=== PATIENT | female | born 1980 | race Two or more races ===

== ENCOUNTER 2025-04-19 14:09 | Inpatient (IN) | payer MEDICAID, SELFPAY ==
--- OUTSIDE RECORDS SUMMARY | 2023-08-30 10:00 | XMS_ITS | Continuity of Care Document ---
Author Organization [facility] Address [address] [place] [phone] Phone Care Team Providers Care Extracting Machine Operator Name Role Phone Carlos Ward MD Unavailable Unavailable Allergies, Adverse Reactions, Alerts Substance Reaction Status Criticality No Known Allergies Active No Inform ation Procedures Procedure Date Comprehensive EP (Complete) Refraction No Charge Comprehensive DIRECTOR OF MANAGED CARE Advance Directives Directive Yes / No Effective Date File Name No Information Encounters Encounter Description Practice Location Reason(s) For Visit Diagnoses Date Provider Providers Copied on Encounter [facility] , [address] [place] [address], [id number], [place] tel:[phone] [place] Dry Eyes OU (chief complaint) Meibomian gland dysfunction (MGD) of upper and lower eyelid of left eyeMeibomian gland dysfunction (MGD) of upper and lower eyelid of right eyeAllergic conjunctiviti s, bilateral Aug- 4 Sylvia Gonzalez. [address] [address], [place], [address], [place]. tel:[phone] [facility] , [address] [place] [address], [id number], [place] tel:[phone] [place] 122 dry eyes (chief complaint) Dry eyes, bilateral Jun- 3 Escobar Davis. [address] [place], [place], [id number] , [place]. tel:[phone] Referring Provider: Ryan Parmar, [address] [place], [address] . tel:[phone] Family History Family Member Type Diagnosis Age At Onset Father Problem Diabetes mellitus Mother Problem Diabetes mellitus Payers Payer name Insurance type Covered libertarian ID Roosevelt serrano(angelic) Affinity by [facility] [id number] Social History Type Description Quantity Date Captured Comments Alcohol Use Details No Caffeine Use Details No Tobacco Use Status Current non-smoker Smoking Status Never smoker Non-Smoking Tobacco Use Details : No Details Available : No Details Available Sex Female Chief Complaint And Reason For Visit From encounter dated '08/30/2023 15:00'. Dry Eyes OU (chief complaint). Description: The 42 year old patient presents for evaluation of Dry Eyes OU. PT is present and is stating that she saw Dr. Cody last year and since that last visit, she has noticed a lot more dryness present in her eyes OU. PT stated not using any gtts due to fear ofrecalls. PT mentioned that her eyes are itchy as well as dry and tearing, especially during the spring season. Reason For Referral Reason For Referral No Information History Of Present Illness Encounter Date Complaint History Of Prese nt Illness Dry Eyes OU The 42 year old patient presents for evaluation of Dry Eyes OU. PT is present and is stating that she saw Dr. Cody last year and since that last visit, she has noticed a lot more dryness present in her eyes OU. PT stated not using any gtts due to fear of recalls. PT mentioned that her eyes are itchy as well as dry and tearing, especially during the spring season. dry eyes The 41 year old female presents for evaluation of dry eyes. Patient states VA stable. States occasional dryness, tearing and watering. C/o light sensitivity and glare while driving at night. Denies all other symptoms at this time. Functional Status Date Functional Assessmen t No Information Instructions Date Instruction Additional Infor nader Return in 1 year for [address] with Dr. Ward. Related to Meibomian gland dysfunction (MGD) of upper and lower eyelid of left eye Impression/Plan Related to Meibo loree gland dysfunction (MGD) of upper and lower eyelid of left eye Return in 1 year nely h Ryan Cody MD for Complete Exam. Related to Dry eyes, bilateral Impression/Plan Related to Dry e yes, bilateral Assessments Type Assessment Date assessment Meibomian gland dysf unction (MGD) of upper and lower eyelid of left eye assessment Meibomian gland dysf unction (MGD) of upper and lower eyelid of right eye assessment Allergic conjunctivitis, bilater al impression MGD OU + Allergies OU 4 Patient Care Teams Name Effective Dates (start - stop) Status Members No Information
--- OUTSIDE RECORDS SUMMARY | 2023-08-30 10:00 | XMS_ITS | Continuity of Care Document ---
Author Organization [facility] Address [address] [place] [phone] Phone Care Team Providers Care Office Professionals Name Role Phone Carlos Ward MD Unavailable Unavailable Allergies, Adverse Reactions, Alerts Substance Reaction Status Criticality No Known Allergies Active No Inform ation Procedures Procedure Date Comprehensive EP (Complete) Refraction No Charge Comprehensive BLOOD BANK CALENDAR CONTROL CLERK Advance Directives Directive Yes / No Effective Date File Name No Information Encounters Encounter Description Practice Location Reason(s) For Visit Diagnoses Date Provider Providers Copied on Encounter [facility] , [address] [place] [address], [id number], [place] tel:[phone] [place] Dry Eyes OU (chief complaint) Meibomian gland dysfunction (MGD) of upper and lower eyelid of left eyeMeibomian gland dysfunction (MGD) of upper and lower eyelid of right eyeAllergic conjunctiviti s, bilateral Aug- 4 Sylvia Gonzalez. [address] [address], [place], [address], [place]. tel:[phone] [facility] , [address] [place] [address], [id number], [place] tel:[phone] [place] 122 dry eyes (chief complaint) Dry eyes, bilateral Jun- 3 Ecsobar Davis. [address] [place], [place], [id number] , [place]. tel:[phone] Referring Provider: Ryan Parmar, [address] [place], [address] . tel:[phone] Family History Family Member Type Diagnosis Age At Onset Father Problem Diabetes mellitus Mother Problem Diabetes mellitus Payers Payer name Insurance type Covered libertarian ID Roosevelt serrano(angelic) Affinity by [facility] [id number] Social History Type Description Quantity Date Captured [...]
--- OUTSIDE RECORDS SUMMARY | 2023-08-30 10:00 | XMS_ITS | Continuity of Care Document ---
Author Organization [facility] Address [address] [place] [phone] Phone Care Team Providers Care Medicaid Biller Name Role Phone Carlos Ward MD Unavailable Unavailable Allergies, Adverse Reactions, Alerts Substance Reaction Status Criticality No Known Allergies Active No Inform ation Procedures Procedure Date Comprehensive EP (Complete) Refraction No Charge Comprehensive FORESTRY TREE PRUNER Advance Directives Directive Yes / No Effective Date File Name No Information Encounters Encounter Description Practice Location Reason(s) For Visit Diagnoses Date Provider Providers Copied on Encounter [facility] , [address] [place] [address], [id number], [place] tel:[phone] [place] Dry Eyes OU (chief complaint) Meibomian gland dysfunction (MGD) of upper and lower eyelid of left eyeMeibomian gland dysfunction (MGD) of upper and lower eyelid of right eyeAllergic conjunctiviti s, bilateral Aug- 4 Sylvia Gonzalez. [address] [address], [place], [address], [place]. tel:[phone] [facility] , [address] [place] [address], [id number], [place] tel:[phone] [place] 122 dry eyes (chief complaint) Dry eyes, bilateral Jun- 3 Escobar Davis. [address] [place], [place], [id number] , [place]. tel:[phone] Referring Provider: Ryan Parmar, [address] [place], [address] . tel:[phone] Family History Family Member Type Diagnosis Age At Onset Father Problem Diabetes mellitus Mother Problem Diabetes mellitus Payers Payer name Insurance type Covered libertarian ID Roosevelt serrano(angelic) Affinity by [facility] [id number] Social History Type Description Quantity Date Captured [...]
--- OUTSIDE RECORDS SUMMARY | 2023-08-30 10:00 | XMS_ITS | Continuity of Care Document ---
Author Organization [facility] Address [address] [place] [phone] Phone Care Team Providers Care Branch Assistant Name Role Phone Carlos Ward MD Unavailable Unavailable Allergies, Adverse Reactions, Alerts Substance Reaction Status Criticality No Known Allergies Active No Inform ation Procedures Procedure Date Comprehensive EP (Complete) Refraction No Charge Comprehensive SENSOR TECHNICIAN Advance Directives Directive Yes / No Effective Date File Name No Information Encounters Encounter Description Practice Location Reason(s) For Visit Diagnoses Date Provider Providers Copied on Encounter [facility] , [address] [place] [address], [id number], [place] tel:[phone] [place] Dry Eyes OU (chief complaint) Meibomian gland dysfunction (MGD) of upper and lower eyelid of left eyeMeibomian gland dysfunction (MGD) of upper and lower eyelid of right eyeAllergic conjunctiviti s, bilateral Aug- 4 Sylvia Gonzalez. [address] [address], [place], [address], [place]. tel:[phone] [facility] , [address] [place] [address], [id number], [place] tel:[phone] [place] 122 dry eyes (chief complaint) Dry eyes, bilateral Jun- 3 Escobar Davis. [address] [place], [place], [id number] , [place]. tel:[phone] Referring Provider: Ryan Parmar, [address] [place], [address] . tel:[phone] Family History Family Member Type Diagnosis Age At Onset Father Problem Diabetes mellitus Mother Problem Diabetes mellitus Payers Payer name Insurance type Covered constitution party ID Roosevelt serrano(angelic) Affinity by [facility] [id number] Social History Type Description Quantity Date Captured [...]
[2025-04-19] VITALS (7 sets, daily range): BP systolic 108–121; BP diastolic 68–80; PULSE 95–118; RESP 18–25; TEMP 36.6–37.5; O2SAT 91–95; BMI 612.4; BMI 25.6
--- NOTE | 2025-04-19 | ECG_ITS ---
Test Reason : QTC CHECK Blood Pressure : */* mmHG Vent. Rate : 124 BPM Atrial Rate : 124 BPM P-R Int : 134 ms QRS Dur : 74 ms QT Int : 322 ms P-R-T Axes : 47 -16 -19 degrees QTcB Int : 462 ms Sinus tachycardia Nonspecific T wave abnormality Abnormal ECG No previous ECGs available Referred By: Sagrario Oliva Electronically Signed By: OSORIO REYNOSO
--- NOTE | ~2025-04-19 | CT_ITS ---
EXAMINATION: CT CHEST WITHOUT CONTRAST CLINICAL INFORMATION: Reason for Exam-persistent hypoxia, wheezing COMPARISON: Chest radiograph on April 19, 2025. TECHNIQUE: Multidetector volumetric CT imaging of the chest was done. Axial MIP volume rendering provided. Sagittal and coronal reformatted images were obtained. This CT examination was performed using dose optimization techniques as appropriate, variously including the following: *Automated exposure control *Adjustment of mA and/or kV according to patient size (this includes techniques or standardized protocols for targeted exams where dose is matched to indication/reason for exam; i.e. 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 LUNGS: Small amount of bubbly soft tissue density in the lower trachea (4:8/53) likely represents mucous/secretions. Minimal bilateral and diffuse bronchial wall thickening. Mucus plugging noted within bronchial branches in the right upper lobe. Collapse of the right middle lobe. Atelectasis/scarring in the lingular region. Small focal area of probable atelectasis in the right upper lobe abutting area of focal pleural thickening of the right major fissure (4:24/53, 13:114/139), PLEURA: No pleural effusion or pneumothorax. Focal area of pleural thickening of the right major fissure as described above. MEDIASTINUM: No thyroid nodules. Heart is normal in size. No pericardial effusion. No coronary artery calcifications. LYMPH NODES: No lymphadenopathy. UPPER ABDOMEN: Numerous hypodense hepatic lesions, incompletely characterized, measuring up to 1.0 cm. OSSEOUS STRUCTURES: No acute or suspicious findings. CT/CT chest wo IV con IMPRESSION: 1. Right middle lobe collapse. 2. Probable mucous/secretions within the lower trachea. 3. Findings suggestive of mild diffuse bronchitis. Mucus plugging in some of the branches of the right upper lobe. 4. Numerous hypodense hepatic lesions, incompletely characterized. If this is a unknown finding, consider ultrasound for further evaluation. Electronically signed by: Keith Brian MD 04/22/2025 03:54 PM EST
--- NOTE | ~2025-04-19 | US_ITS ---
CLINICAL HISTORY: hepatic lesions identified US abdomen limited Comparison: None provided Findings: Multiple small hepatic cysts noted. No other significant hepatic abnormality. Right lobe 13 cm length. Main portal vein patent with antegrade flow. Visualized pancreas unremarkable. Gallbladder unremarkable without stones. Common duct 3.2 mm. No wall thickening. Impression: Multiple hepatic cysts Otherwise unremarkable This document has been electronically signed by: Raleigh Yao MD on 04/23/2025 00:16:21
--- NOTE | ~2025-04-19 | XR_ITS ---
CLINICAL HISTORY: wheezing 2 view chest x-ray. Comparison: None Findings: In the lateral view there is thickening of the major fissure and partial atelectasis of the right middle lobe. Perihilar interstitial opacities are present. Heart size normal No acute fracture. Impression: Perihilar interstitial opacity consistent with atypical pulmonary infection such as virus or mycoplasma. Right middle lobe consolidation and thickening of the major fissure in the lateral projection. This document has been electronically signed by: Hardeep Chapman MD on 04/19/2025 15:01:23
--- NOTE | 2025-04-19 14:11 | ED.GENADULT ---
HPI - General Adult General Chief complaint: Asthma Stated complaint: asthma Time Seen by Provider: 04/19/25 16:13 Source: patient Mode of arrival: ambulatory Limitations: no limitations History of Present Illness ED Provider: Dr. Obregon HPI narrative: 44-year-old female presented hospital today for chest discomfort and worsening shortness of breath and wheezing. Patient has a history of asthma in the past. . This has been going on since Sunday. Patient presents to the ER for evaluation due to his shortness of breath. Related Data Allergies Allergy/AdvReac Type Severity Reaction Status Date / Time No Known Allergies Allergy Verified 04/19/25 14:15 Review of Systems Review of Systems: Pertinent review of systems as mentioned in HPI. All other system otherwise negative. [facility] Past Medical History [facility] Narrative: Asthma Medical History (Updated 04/19/25 @ 22:20 by Mariel Obregon DO) Moderate persistent asthma Social History Social History Smoked in Last 30 Days: No Use of substances other than those prescribed or required for medical reasons: No Advance Directives: No Advance Directives Information Provided: No Do you have a plan to hurt others: No Plan Patient : No Physical Exam ED Exam Exam: General: appears uncomfortable Head: Normacephalic, atraumatic ENT: oral mucosa moist, neck supple, no tracheal deviation Cardiovascular: tachycardic rate, regular rhythm, no murmurs, rubbing, gallops Respiratory: diminished lung sounds bilateral wheezing Gastrointestinal: Soft, non distended, non tender, non guarding Neurological: Awake and alert, no facial droop noted Skin: Warm and dry Psychiatric: Appropriate mood and thoughts Vital Signs: Vital Signs - 24 hr 04/19/25 14:12 04/19/25 14:58 04/19/25 15:26 Temperature 97.9 F 98.2 F Pulse Rate 98 95 110 H Respiratory Rate 18 18 25 H Blood Pressure 114/68 117/71 Pulse Oximetry 93 95 Oxygen Delivery Method Room Air Room Air 04/19/25 17:14 04/19/25 17:26 04/19/25 19:47 Temperature 98.6 F 99.5 F Pulse Rate 102 H 99 118 H Respiratory Rate 20 18 18 Blood Pressure 121/80 108/71 Pulse Oximetry 95 91 L Oxygen Delivery Method Room Air Room Air 04/19/25 20:17 Temperature Pulse Rate 100 Respiratory Rate 18 Blood Pressure Pulse Oximetry Oxygen Delivery Method BMI result Body Mass Index 612.4 Course Course Course Narrative: This is a Rapid Medical Examination (RME) performed by Izable Meade PA-C in triage. Full HPI, ROS, assessment and treatment plan per primary provider in the Main ED. Hx: 44 yo F here for eval of wheezing and chest pain w/ breathing x6 days. unresponsive to home tx. Plan: ed bronch protocol, labs/cxr/viral swabs Medications Administered Generic Name Dose Route Start Last Admin Trade Name Freq PRN Reason Stop Dose Admin Enoxaparin Sodium 40 mg 04/19/25 21:00 04/19/25 21:06 Enoxaparin Sodium 40 Mg/0.4 Ml Syringe SUBCUT 40 mg Q24H JOHNATHAN Administration Discontinued Medications Generic Name Dose Route Start Last Admin Trade Name Freq PRN Reason Stop Dose Admin Acetaminophen 975 mg 04/19/25 17:16 04/19/25 17:35 Acetaminophen 325 Mg Tablet PO 04/19/25 17:17 975 mg ONCE ONE Administration Albuterol/Ipratropium 3 ml 04/19/25 17:15 04/19/25 17:25 Albuterol/Iprat 2.5/0.5mg 3 Ml Ampul.Neb INHALE 04/19/25 17:16 3 ml ONCE ONE Administration Albuterol/Ipratropium 3 ml 04/19/25 17:16 04/19/25 17:37 Albuterol/Iprat 2.5/0.5mg 3 Ml Ampul.Neb INHALE 04/19/25 17:17 3 ml ONCE ONE Administration Albuterol/Ipratropium 3 ml 04/19/25 19:53 04/19/25 20:17 Albuterol/Iprat 2.5/0.5mg 3 Ml Ampul.Neb INHALE 04/19/25 19:54 3 ml ONCE ONE Administration Azithromycin 500 mg 04/19/25 20:28 04/19/25 21:04 Azithromycin 500 Mg Tablet PO 04/19/25 20:29 500 mg ONCE ONE Administration Albuterol Sulfate 2.5 mg/ 0 mg 04/19/25 14:57 04/19/25 15:00 Albuterol/Ipratropium 3 ml INHALE 04/19/25 14:58 5 dose ONCE ONE Administration Guaifenesin/Codeine Phosphate 5 ml 04/19/25 17:17 04/19/25 17:37 Guaifen/Codeine Sf 200/20/10ml 10 Ml Liquid PO 04/19/25 17:18 5 ml ONCE ONE Administration Sodium Chloride 1,000 mls @ 999 mls/hr 04/19/25 17:30 04/19/25 19:09 Ns IV 04/19/25 18:30 Infused .Q1H1M JOHNATHAN Infusion Magnesium Sulfate 2 gm in 50 mls @ 50 mls/hr 04/19/25 17:16 04/19/25 18:41 Magnesium Sulfate/H2o IV 04/19/25 18:15 Infused ONCE ONE Infusion Lactated Ringer's 1,000 mls @ 999 mls/hr 04/19/25 20:00 04/19/25 21:03 Lr IV 04/19/25 21:00 0 mls/hr .Q1H1M JOHNATHAN Infusion Ceftriaxone Sodium 2 gm/ 50 mls @ 100 mls/hr 04/19/25 20:27 04/19/25 21:03 Sodium Chloride IV 04/19/25 20:56 100 mls/hr ONCE ONE Administration Ketorolac Tromethamine 15 mg 04/19/25 19:55 04/19/25 20:05 Ketorolac Tromethamine 15 Mg/Ml Vial IVPUSH 04/19/25 19:56 15 mg ONCE ONE Administration Prednisone 60 mg 04/19/25 17:16 04/19/25 17:35 Prednisone 20 Mg Tablet PO 04/19/25 17:17 60 mg ONCE ONE Administration Medical Decision Making Medical Decision Making [facility] Narrative: This is a 44-year-old female presented hospital today for evaluation of shortness of breath and wheezing. I suspect patient has asthma exacerbation. Viral swab was positive for RSV. Chest x-ray showed possible pneumonia. We will plan to cover patient with IV ceftriaxone and azithromycin for community-acquired pneumonia coverage. Multiple DuoNeb treatment was given to the patient. P.o. prednisone was given to the patient as well. However the patient does have signs of hypoxia O2 saturation dropped to 88%. Patient does sounds diminished bilaterally. Given patient's presentation at this time we will plan to admit patient to the hospital. IV fluid was given for the patient's tachycardia. I suspect her tachycardia is secondary to breathing treatments multiple time. No sign of leukocytosis however the patient does have signs of elevated lactic acid. I think this is likely secondary to patient receiving multiple breathing treatments during her stay here. We will plan to admit the patient to the hospital at this time. Differential Diagnosis Differential Diagnoses: The differential diagnosis associated with the presentation includes Pneumonia, RSV, sepsis, respiratory failure Consult Healthcare Provider Management of the patient was discussed with: Hospitalist Lab Data MDM Lab Attestation statement: I reviewed the patient's lab results. 04/19/25 14:46 04/19/25 14:46 Labs: Lab Results 04/19/25 04/19/25 Range/Units 14:45 14:46 WBC 5.8 (4.8-10.8) X10*3/uL RBC 4.69 (4.20-5.50) X10*6/uL Hgb 12.9 (12.0-16.0) g/dl Hct 40.1 (37.0-47.0) % MCV 85.5 (80.0-98.0) fL MCH 27.5 (27.0-33.0) pg MCHC 32.2 (31.0-35.0) g/dl RDW 13.7 (11.0-16.0) % Plt Count 199 (160-400) X10*3/uL MPV 10.8 (9.4-12.3) fL Immature Gran % (Auto) 0.2 (0.0-0.4) % Neut % (Auto) 56.9 (45-73) % Lymph % (Auto) 27.6 (20-40) % Door % (Auto) 9.3 (2-11) % Eos % (Auto) 5.3 H (0-4) % Baso % (Auto) 0.7 (0-2) % Lymph # (Auto) 1.6 (1.2-4.9) X10*3/uL Door # (Auto) 0.5 (0.1-1.2) X10*3/uL Eos # (Auto) 0.3 (0.0-0.4) X10*3/uL Baso # (Auto) 0.0 (0.0-0.2) X10*3/uL Abs Immat Gran (auto) 0.01 (0.00-0.03) X10*3/uL Absolute Neuts (auto) 3.3 (2.0-8.3) x10*3/uL Absolute Nucleated RBC 0.000 (0.0-0.012) X10*3/uL Nucleated RBC % (auto) 0.0 (0.0-0.2) /100WBC Sodium 139 (135-145) mmol/L Potassium 4.3 (3.3-5.1) mmol/L Chloride 106 (96-108) mmol/L Carbon Dioxide 26 (22-29) mmol/L Anion Gap 11 L (12-20) BUN 11 (9-16) mg/dL Creatinine 0.91 (0.5-1.4) mg/dL Estim Creat Clear Calc -20.3 Estimated GFR > 60 Random Glucose 101 (60-115) mg/dL Calcium 9.3 (8.4-10.2) mg/dL Magnesium 2.0 (1.6-2.6) mg/dL Total Bilirubin 0.2 (0.0-1.0) mg/dL AST 20 (5-31) U/L ALT 17 (0-31) U/L Alkaline Phosphatase 58 (39-117) U/L Total Protein 7.3 (6.5-8.0) g/dL Albumin 4.1 (3.5-5.0) g/dL Influenza Type A (PCR) NEGATIVE (Negative) Influenza Type B (PCR) NEGATIVE (Negative) RSV RNA Qual (PCR) POSITIVE A (Negative) SARS-CoV-2 RNA (RT-PCR) NEGATIVE (Negative) Independent Interpretation I performed an independent interpretation of an: Plain X-Ray Radiology Impression Discussion of test interpretation with radiology: I have reviewed the radiologist's reading. Critical Care Time Critical Care Time Critical Care Time: Yes Total Critical Care Time: 40 Attestation: Time is exclusive of separately billable procedures. Time includes: direct patient care, patient reassessment, coordination of patient care, interpretation of data (laboratory data, pulse oximetry, arterial blood gases and chest xrays), review of patient's medical records, medical consultation and documentation of patient care. Procedures excluded from critical care time: central intravenous line placement and electrocardiography. Discharge Plan Discharge Clinical Impression: Acute respiratory failure with hypoxia, RSV (acute bronchiolitis due to respiratory syncytial virus), Acute asthma exacerbation, Acute lactic acidosis Patient Disposition: Admitted As Inpatient
[2025-04-19 14:53] LABS: MANUAL DIFF FLAG NO
[2025-04-19 14:57] LABS: Hematocrit 40.1 % (37.0-47.0); Hemoglobin 12.9 g/dl (12.0-16.0); Imm Gran Abs Auto 0.01 X10*3/uL (0.00-0.03); Imm Gran Pct Auto 0.2 % (0.0-0.4); Lymphocytes Absolute Auto 1.6 X10*3/uL (1.2-4.9); Mean Corpuscular HGB Conc 32.2 g/dl (31.0-35.0); Mean Corpuscular Hemoglobin 27.5 pg (27.0-33.0); Mean Corpuscular Volume 85.5 fL (80.0-98.0); NRBC Abs Auto 0.000 X10*3/uL (0.0-0.012); NRBC Pct Auto 0.0 /100WBC (0.0-0.2); Platelet Count 199 X10*3/uL (160-400); Red Blood Count 4.69 X10*6/uL (4.20-5.50); White Blood Count 5.8 X10*3/uL (4.8-10.8)
[2025-04-19] MEDS: Albuterol Sulfate 2.5 MG, Albuterol/Iprat 2.5/0.5MG 3 ML 3 ML INHALE (15:00)
[2025-04-19 15:13] LABS: Alanine Aminotransferase 17 U/L (0-31); Albumin Level 4.1 g/dL (3.5-5.0); Alkaline Phosphatase 58 U/L (39-117); Anion Gap 11 (12-20); Aspartate Amino Transferase 20 U/L (5-31); Blood Urea Nitrogen 11 mg/dL (9-16); Calcium 9.3 mg/dL (8.4-10.2); Carbon Dioxide 26 mmol/L (22-29); Chloride 106 mmol/L (96-108); Creatinine Clr Calc Pharmacy -20.3; Estimated Glomerular Filt Rate > 60; Magnesium 2.0 mg/dL (1.6-2.6); Potassium 4.3 mmol/L (3.3-5.1); Sodium 139 mmol/L (135-145); Total Protein 7.3 g/dL (6.5-8.0)
[2025-04-19 15:29] LABS: Resp Syncy Virus RNA Qual PCR POSITIVE (Negative); SARS COV2 PCR INHOUSE NEGATIVE (Negative)
[2025-04-19] MEDS: Albuterol/Iprat 2.5/0.5MG 3 ML AMPUL.NEB INHALE ×3 (17:25→20:17)
[2025-04-19] MEDS: Magnesium Sulfate/H2O 2 GM/50 ML PIGGYBACK IV (17:34)
[2025-04-19] MEDS: guaiFEN/Codeine SF 200/20/10ML 10 ML LIQUID 5 ML PO (17:37)
--- NOTE | 2025-04-19 18:07 | PC.NURSE ---
alert and oriented, coughing with labored breathing intermittently. RSV + Chest pain with coughing and breathing. General malaise
[2025-04-19] MEDS: Lactated Ringers 1,000 ML 999 ML IV ×2 (20:07→22:29)
--- NOTE | 2025-04-19 20:10 | PC.NURSE ---
Pt spO2 dropped to 88% on room air during ambulation. Provider notified.
[2025-04-19 20:54] LABS: Venous Blood Gas Refer to POC result
[2025-04-19 20:54] LABS: VBG HCO3 20 mmol/L (22-26); VBG O2 % Saturation 86.0 %
--- NOTE | 2025-04-19 21:10 | PC.NURSE ---
Delay in ABX administration due to need to obtain blood cultures first. Pt requesting a break in between obtaining each set of blood cultures.
--- NOTE | 2025-04-19 21:28 | P.HPHOSP_ITS ---
History of Present Illness Date of Service: 04/19/25 Attending physician on admission: Armando Whitley Chief Complaint: SOB, wheeze Patient is a 44 old female with a history significant for moderate persistent asthma (only on albuterol) and history of ICU admission with intubation in 2009 for asthma exacerbation, who presented to the ED due to cough, shortness of breath, wheezing and chest discomfort for the past 5 days. The patient reports that she saw her primary care and was started on a nebulizer without any improvement. She reports that at baseline she uses albuterol 2 to 3 times a day but has been using it up to 5 times a day due to her illness. She also has a mild headache and states that she has not been able to eat much for the past 3 days due to her cough and concern for post tussive emesis. No abdominal pain or urinary symptoms. Review of Systems 2 Constitutional: Constitutional: Denies body ache(s), Denies chills, Denies fatigue, Denies fever(s) and Reports headache(s) Eyes: Eyes: Denies change in vision ENT: Reports headache(s), Denies nasal congestion and Denies sore throat Cardiovascular: Cardiovascular: Reports chest pain, Denies rapid heart rate, Denies lightheadedness and Reports dyspnea Respiratory: Respiratory: Reports as per HPI, Reports chest congestion, Reports cough, Reports dyspnea and Reports wheezing Gastrointestinal: Gastrointestinal: Denies abdominal pain, Denies diarrhea, Denies nausea and Denies vomiting Genitourinary: Genitourinary: Denies dysuria and Denies urinary urgency Musculoskeletal: Musculoskeletal: Denies myalgias Integumentary/Breasts: Skin/Breast: Denies rash Neurologic: Denies confusion and Reports headache(s) Psychiatric: Psychiatric: Denies confusion Endocrine: Endocrine: Denies fatigue Hematologic/Lymphatic: Hematologic/Lymphatic: Denies easy bleeding Allergic/Immunologic: Allergic/Immunologic: Reports wheezing [facility] Medical History (Updated 04/19/25 @ 22:09 by Sagrario Oliva PA-C) Moderate persistent asthma Functional capacity: independent ambulation Social History Smoked in Last 30 Days: No Use of substances other than those prescribed or required for medical reasons: No Advance Directives: No Advance Directives Information Provided: No Do you have a plan to hurt others: No Plan Patient : No Narrative: No smoking, alcohol or drug use Meds Allergies Allergy/AdvReac Type Severity Reaction Status Date / Time No Known Allergies Allergy Verified 04/19/25 14:15 Active Medications: Current Medications Acetaminophen (Acetaminophen 325 Mg Tablet) 975 mg PO Q6H PRN PRN Reason: Pain, Mild 1-3,fever,headache Albuterol/Ipratropium (Albuterol/Iprat 2.5/0.5mg 3 Ml Ampul.Neb) 3 ml INHALE RQ4H WHILE AWAKE [facility] Calcium Carbonate (Calcium Carbonate 750 Mg Tab.Chew) 750 mg PO Q4H PRN PRN Reason: Heartburn Enoxaparin Sodium (Enoxaparin Sodium 40 Mg/0.4 Ml Syringe) 40 mg SUBCUT Q24H JOHNATHAN Last Admin: 04/19/25 21:06 Dose: 40 mg Guaifenesin/Dextromethorphan (Guaifenesin Dm 100/10/5 Ml 5 Ml Syrup) 5 ml PO Q6H PRN PRN Reason: Cough Ceftriaxone Sodium 1 gm/ (Sodium Chloride) 50 mls @ 100 mls/hr IV Q24H JOHNATHAN Doxycycline Hyclate 100 mg/ (Sodium Chloride) 250 mls @ 166.67 mls/hr IV BID [facility] Magnesium Hydroxide (Milk Of Magnesia 30 Ml Oral.Susp) 30 ml PO DAILY PRN PRN Reason: Constipation Melatonin (Melatonin 3 Mg Tablet) 6 mg PO BEDTIME PRN PRN Reason: Insomnia Ondansetron HCl (Ondansetron Hcl 4 Mg/2 Ml Vial) 4 mg IVPUSH Q8H PRN PRN Reason: Nausea and Vomiting Oxycodone HCl (Oxycodone Hcl Immed Release 5 Mg Tablet) 5 mg PO Q6H PRN PRN Reason: Pain, Severe (Pain Scale 7-10) Prednisone (Prednisone 20 Mg Tablet) 60 mg PO DAILY [facility]; Taper Stop: 05/04/25 08:59 Sodium Chloride (0.9 % Sodium Chloride Flush 3 Ml Syringe) 3 ml IVFLUSH QSHIFT [facility] Tramadol HCl (Tramadol Hcl 50 Mg Tablet) 50 mg PO Q6H PRN PRN Reason: Pain, Moderate(Pain Scale 4-6) Physical Exam 2 Vital Signs and Narrative: Vital Signs: Last Vital Signs Temp 99.5 F 04/19/25 19:47 Pulse 100 04/19/25 20:17 Resp 18 04/19/25 20:17 BP 108/71 04/19/25 19:47 Pulse Ox 91 L 04/19/25 19:47 O2 Del Method Room Air 04/19/25 19:47 BMI result Body Mass Index 25.6 General: AOx3, no acute distress Resp: expiratory wheezing, no respiratory distress CVS: S1, S2, tachy regular rhythm GI: +BS, NT, no distention Skin: Warm, dry Neuro: Cranial nerves II-XII grossly intact bilaterally. Motor grossly intact bilaterally Extremities: No pitting edema Psych: Appropriate affect Const: General: No confusion Orientation/consciousness: No confusion Neuro: General: No confusion Results Labs 04/19/25 14:46 04/19/25 14:46 Labs: Laboratory Results - last 24 hr 04/19/25 04/19/25 04/19/25 14:45 14:46 20:45 MCV 85.5 MCH 27.5 MCHC 32.2 RDW 13.7 Plt Count 199 MPV 10.8 Immature Gran % (Auto) 0.2 Neut % (Auto) 56.9 Lymph % (Auto) 27.6 [place] % (Auto) 9.3 Eos % (Auto) 5.3 H Baso % (Auto) 0.7 Lymph # (Auto) 1.6 [place] # (Auto) 0.5 Eos # (Auto) 0.3 Baso # (Auto) 0.0 Abs Immat Gran (auto) 0.01 Absolute Neuts (auto) 3.3 Absolute Nucleated RBC 0.000 Nucleated RBC % (auto) 0.0 VBG pH VBG pCO2 VBG pO2 VBG HCO3 VBG O2 Saturation VBG Base Excess Anion Gap 11 L Estim Creat Clear Calc -20.3 Estimated GFR > 60 Random Glucose 101 Lactic Acid 3.5 H* Calcium 9.3 Magnesium 2.0 Total Bilirubin 0.2 AST 20 ALT 17 Alkaline Phosphatase 58 Total Protein 7.3 Albumin 4.1 Influenza Type A (PCR) NEGATIVE Influenza Type B (PCR) NEGATIVE RSV RNA Qual (PCR) POSITIVE A SARS-CoV-2 RNA (RT-PCR) NEGATIVE 04/19/25 20:50 MCV MCH MCHC RDW Plt Count MPV Immature Gran % (Auto) Neut % (Auto) Lymph % (Auto) [place] % (Auto) Eos % (Auto) Baso % (Auto) Lymph # (Auto) [place] # (Auto) Eos # (Auto) Baso # (Auto) Abs Immat Gran (auto) Absolute Neuts (auto) Absolute Nucleated RBC Nucleated RBC % (auto) VBG pH 7.39 VBG pCO2 33 VBG pO2 58 VBG HCO3 20 L VBG O2 Saturation 86.0 VBG Base Excess -3.4 Anion Gap Estim Creat Clear Calc Estimated GFR Random Glucose Lactic Acid Calcium Magnesium Total Bilirubin AST ALT Alkaline Phosphatase Total Protein Albumin Influenza Type A (PCR) Influenza Type B (PCR) RSV RNA Qual (PCR) SARS-CoV-2 RNA (RT-PCR) Assessment and Plan (1) Acute respiratory failure with hypoxia: Status: Acute (2) Acute asthma exacerbation: Qualifiers: Asthma severity: moderate Asthma persistence: persistent Qualified Code(s): J45.41 - Moderate persistent asthma with (acute) exacerbation Status: Acute (3) RSV (acute bronchiolitis due to respiratory syncytial virus): Status: Acute (4) Viral pneumonia: Status: Acute (5) Acute lactic acidosis: Status: Acute Plan Patient is a 44 old female with a history significant for moderate persistent asthma (only on albuterol) and history of ICU admission with intubation in 2009 for asthma exacerbation, who presented to the ED due to cough, shortness of breath, wheezing and chest discomfort for the past 5 days. Acute hypoxic respiratory failure with acute asthma exacerbation secondary to RSV with superimposed viral pneumonia - hypoxic with ambulation, titrate O2 PRN - poorly controlled asthma at baseline - prednisone taper starting at 60mg - duonebs Q4H while awake - azithromycin for viral pneumonia - supportive care for RSV, Robitussin, Tylenol - monitor CBC and BMP Acute lactic acidosis and tachycardia secondary to albuterol use - trend lactic acid full code VTE prophy: lovenox Patient has acute hypoxic respiratory failure secondary to asthma exacerbation with RSV and superimposed pneumonia, requiring admission for at least 2 midnight stay for IV antibiotics, breathing treatments and monitoring. Quality Stroke Does the patient have a stroke diagnosis?: No VTE Prior VTE?: No VTE Risk Level:: Medical - moderate - high VTE Device Contraindication: Treatment Not Indicated VTE Drug Contraindication: N/A - Med Ordered
[2025-04-19 22:49] LABS: Reflex Lactate? Lactic Acid Added
[2025-04-19 23:33] LABS: ~Lactic Acid-LAB USE ONLY 6.5 mmol/L (0.5-2.0)
[2025-04-20] VITALS (9 sets, daily range): BP systolic 99–121; BP diastolic 51–68; PULSE 88–136; RESP 14–34; TEMP 36.4–37.1; O2SAT 90–100
--- NOTE | 2025-04-20 | ECG_ITS ---
Test Reason : pain Blood Pressure : */* mmHG Vent. Rate : 113 BPM Atrial Rate : 113 BPM P-R Int : 136 ms QRS Dur : 76 ms QT Int : 324 ms P-R-T Axes : 51 -1 -22 degrees QTcB Int : 444 ms Sinus tachycardia Nonspecific T wave abnormality Abnormal ECG When compared with ECG of 19-Apr-2025 21:32, No significant change was found Referred By: Se Sanford Electronically Signed By: OSORIO REYNOSO
--- NOTE | 2025-04-20 00:02 | PM.EVENT ---
Event Note Date of Service: 04/20/25 Event Note: lactic acid elevated at 6.5, due to multiple doses of albuterol in the ED and at home. received 3L IVF in ED. tachycardia also due to albuterol use, improving. Time Spent With Patient Time: Total time managing care of this patient today ____ minutes.
[2025-04-20 01:11] LABS: Reflex Lactate? 2 Y
[2025-04-20] MEDS: 0.9 % Sodium Chloride Flush 3 ML SYRINGE IVFLUSH ×3 (01:48→21:02)
[2025-04-20 02:02] LABS: ~Lactic Acid-LAB USE ONLY 4.3 mmol/L (0.5-2.0)
[2025-04-20 02:33] LABS: Cancel Lactic Acid Canceled
[2025-04-20 04:09] LABS: MANUAL DIFF FLAG NO
[2025-04-20 04:11] LABS: Hematocrit 37.3 % (37.0-47.0); Hemoglobin 11.8 g/dl (12.0-16.0); Imm Gran Abs Auto 0.01 X10*3/uL (0.00-0.03); Imm Gran Pct Auto 0.2 % (0.0-0.4); Lymphocytes Absolute Auto 1.1 X10*3/uL (1.2-4.9); Mean Corpuscular HGB Conc 31.6 g/dl (31.0-35.0); Mean Corpuscular Hemoglobin 27.1 pg (27.0-33.0); Mean Corpuscular Volume 85.7 fL (80.0-98.0); NRBC Abs Auto 0.000 X10*3/uL (0.0-0.012); NRBC Pct Auto 0.0 /100WBC (0.0-0.2); Platelet Count 199 X10*3/uL (160-400); Red Blood Count 4.35 X10*6/uL (4.20-5.50); White Blood Count 4.5 X10*3/uL (4.8-10.8)
[2025-04-20 04:23] LABS: Anion Gap 12 (12-20); Blood Urea Nitrogen 8 mg/dL (9-16); Calcium 8.7 mg/dL (8.4-10.2); Carbon Dioxide 22 mmol/L (22-29); Chloride 110 mmol/L (96-108); Creatinine Clr Calc Pharmacy 89.7; Estimated Glomerular Filt Rate > 60; Potassium 4.0 mmol/L (3.3-5.1); Sodium 140 mmol/L (135-145)
[2025-04-20 05:00] LABS: Folate 8.6 ng/mL (> or = 4.0); Vitamin B12 626 pg/mL (200-900)
--- NOTE | 2025-04-20 07:15 | PC.NURSE ---
assumed care of pt at 0645. pt a&ox4. vss and up to date. 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 slight wheezing noted upon auscultation - pending breathing tx via RT. otherwise no apparent respiratory distress - no sob/wob noted. respirations even/unlabored. prn zofran administered d/t increased nausea as patient states her cough makes her nauseous. pt otherwise pending bed assignment at this time. plan of care ongoing. call burton placed within reach.
[2025-04-20] MEDS: Albuterol/Iprat 2.5/0.5MG 3 ML AMPUL.NEB INHALE ×2 (07:46→11:08)
--- NOTE | 2025-04-20 08:45 | PC.NURSE ---
pt medicated per provider order. pt reporting prn administration was effective. resting comfortably in no apparent distress. plan of care ongoing. call burton placed within reach.
--- NOTE | 2025-04-20 08:54 | PHA.MEDREC ---
Pharmacy Consult ? Medication Reconciliation Pharmacy has completed the medication reconciliation. Patient know medications. Recently stopped amox 500 qid. Last dose sat 111/15 night
--- NOTE | 2025-04-20 11:06 | P.DS_ITS ---
DS: Providers Provider Date of Service: 04/20/25 Date of admission: 04/19/25 20:32 Date of discharge: 04/20/25 Primary care physician: Juan Baig DS: Diagnosis Discharge Diagnosis (1) Acute respiratory failure with hypoxia: Status: Acute (2) Acute asthma exacerbation: Status: Acute (3) RSV (acute bronchiolitis due to respiratory syncytial virus): Status: Acute (4) Viral pneumonia: Status: Acute (5) Acute lactic acidosis: Status: Acute DS: Summary Hospital Course Hospital Course: Admission HPI Chief Complaint: SOB, wheeze Patient is a 44 old female with a history significant for moderate persistent asthma (only on albuterol) and history of ICU admission with intubation in 2009 for asthma exacerbation, who presented to the ED due to cough, shortness of breath, wheezing and chest discomfort for the past 5 days. The patient reports that she saw her primary care and was started on a nebulizer without any improvement. She reports that at baseline she uses albuterol 2 to 3 times a day but has been using it up to 5 times a day due to her illness. She also has a mild headache and states that she has not been able to eat much for the past 3 days due to her cough and concern for post tussive emesis. No abdominal pain or urinary symptoms. Hospital coruse: Time Attestation Discharge Coordination Time (in mins): 45 Quality: Safe Use of Opioids Does Pt have an Active Cancer Diagnosis on the Problem List?: No Quality: Stroke Does the patient have a stroke diagnosis?: No Physical Exam Vital Signs: Vital Signs: Last Vital Signs Temp 98.2 F 04/20/25 04:35 Pulse 88 04/20/25 07:47 Resp 14 04/20/25 07:47 BP 102/59 L 04/20/25 04:35 Pulse Ox 100 04/20/25 04:35 O2 Del Method Room Air 04/20/25 04:35 BMI result Body Mass Index 25.6 DS: Data Data Completed and Pending Labs on day of discharge: Laboratory Results - last 24 hr 04/19/25 04/19/25 04/19/25 14:45 14:46 20:45 WBC 5.8 RBC 4.69 Hgb 12.9 Hct 40.1 MCV 85.5 MCH 27.5 MCHC 32.2 RDW 13.7 Plt Count 199 MPV 10.8 Immature Gran % (Auto) 0.2 Neut % (Auto) 56.9 Lymph % (Auto) 27.6 [place] % (Auto) 9.3 Eos % (Auto) 5.3 H Baso % (Auto) 0.7 Lymph # (Auto) 1.6 [place] # (Auto) 0.5 Eos # (Auto) 0.3 Baso # (Auto) 0.0 Abs Immat Gran (auto) 0.01 Absolute Neuts (auto) 3.3 Absolute Nucleated RBC 0.000 Nucleated RBC % (auto) 0.0 VBG pH VBG pCO2 VBG pO2 VBG HCO3 VBG O2 Saturation VBG Base Excess Sodium 139 Potassium 4.3 Chloride 106 Carbon Dioxide 26 Anion Gap 11 L BUN 11 Creatinine 0.91 Estim Creat Clear Calc -20.3 Estimated GFR > 60 Random Glucose 101 Lactic Acid 3.5 H* Lactic Acid F/U @ 2Hr Lactic Acid F/U @ 4Hr Calcium 9.3 Magnesium 2.0 Total Bilirubin 0.2 AST 20 ALT 17 Alkaline Phosphatase 58 Total Protein 7.3 Albumin 4.1 Vitamin B12 Folate Influenza Type A (PCR) NEGATIVE Influenza Type B (PCR) NEGATIVE RSV RNA Qual (PCR) POSITIVE A SARS-CoV-2 RNA (RT-PCR) NEGATIVE 04/19/25 04/19/25 04/20/25 20:50 23:09 01:27 WBC RBC Hgb Hct MCV MCH MCHC RDW Plt Count MPV Immature Gran % (Auto) Neut % (Auto) Lymph % (Auto) [place] % (Auto) Eos % (Auto) Baso % (Auto) Lymph # (Auto) [place] # (Auto) Eos # (Auto) Baso # (Auto) Abs Immat Gran (auto) Absolute Neuts (auto) Absolute Nucleated RBC Nucleated RBC % (auto) VBG pH 7.39 VBG pCO2 33 VBG pO2 58 VBG HCO3 20 L VBG O2 Saturation 86.0 VBG Base Excess -3.4 Sodium Potassium Chloride Carbon Dioxide Anion Gap BUN Creatinine Estim Creat Clear Calc Estimated GFR Random Glucose Lactic Acid Lactic Acid F/U @ 2Hr 6.5 H* Lactic Acid F/U @ 4Hr 4.3 H* Calcium Magnesium Total Bilirubin AST ALT Alkaline Phosphatase Total Protein Albumin Vitamin B12 Folate Influenza Type A (PCR) Influenza Type B (PCR) RSV RNA Qual (PCR) SARS-CoV-2 RNA (RT-PCR) 04/20/25 03:53 WBC 4.5 L RBC 4.35 Hgb 11.8 L Hct 37.3 MCV 85.7 MCH 27.1 MCHC 31.6 RDW 13.7 Plt Count 199 MPV 11.3 Immature Gran % (Auto) 0.2 Neut % (Auto) 74.1 H Lymph % (Auto) 23.7 [place] % (Auto) 2.0 Eos % (Auto) 0.0 Baso % (Auto) 0.0 Lymph # (Auto) 1.1 L [place] # (Auto) 0.1 Eos # (Auto) 0.0 Baso # (Auto) 0.0 Abs Immat Gran (auto) 0.01 Absolute Neuts (auto) 3.3 Absolute Nucleated RBC 0.000 Nucleated RBC % (auto) 0.0 VBG pH VBG pCO2 VBG pO2 VBG HCO3 VBG O2 Saturation VBG Base Excess Sodium 140 Potassium 4.0 Chloride 110 H Carbon Dioxide 22 Anion Gap 12 BUN 8 L Creatinine 0.68 Estim Creat Clear Calc 89.7 Estimated GFR > 60 Random Glucose 143 H Lactic Acid Lactic Acid F/U @ 2Hr Lactic Acid F/U @ 4Hr Calcium 8.7 D Magnesium Total Bilirubin AST ALT Alkaline Phosphatase Total Protein Albumin Vitamin B12 626 Folate 8.6 Influenza Type A (PCR) Influenza Type B (PCR) RSV RNA Qual (PCR) SARS-CoV-2 RNA (RT-PCR) Discharge Plan Discharge Patient Disposition: Home, Self-Care Discharge Diagnosis: Acute respriatory failure due RSV causing asthma exacerbation Referrals: Juan Baig [Other] - 1 Week Discharge Medications: No Action budesonide 0.5 mg/2 mL Suspension For Nebulization 0.5 mg INHALATION BID albuterol sulfate [ProAir HFA] 90 mcg/actuation Hfa Aerosol Inhaler 2 puff INHALATION Q4H PRN (Reason: Wheezing) Diet: Advance to usual diet Activity on Discharge: As tolerated Stand Alone Forms: Patient Portal Discharge page Print Language: Israeli Care Plan Goals: recovery from acute respiratory failure due to RSV causing asthma exacerbation Health Concerns: acute respiratory failure due to RSV causing asthma exacerbation Plan of Treatment: Take prednisone as directed, Use inhalers as directed follow up with your Doctor in a week, call for appointmen Assessment: see above
--- NOTE | 2025-04-20 11:23 | P.PNIM_ITS ---
Subjective Subjective Date of Service: 04/20/25 Interval History: f/u acute hypoxic respiratory failure due to moderate persitent asthma with acute exacerbation Still with SOB and persistent wheezing, has tested positive for RSV and has history of inbuation Physical Exam 2 Vital Signs: Vital Signs: Last Vital Signs Temp 98.2 F 04/20/25 04:35 Pulse 109 H 04/20/25 11:12 Resp 25 H 04/20/25 11:12 BP 102/59 L 04/20/25 04:35 Pulse Ox 100 04/20/25 04:35 O2 Del Method Room Air 04/20/25 04:35 BMI result Body Mass Index 25.6 Const: Other: General: AO X 3, no acute distress Resp: Bilaterl wheezing with some effort, CVS: S1,S2,RRR GI: +BS, NT, no distention Skin: No rash Neuro: motor grossly intact Psych: appropriate affect Objective Data Active Medications Acetaminophen (Acetaminophen 325 Mg Tablet) 975 mg PO Q6H PRN PRN Reason: Pain, Mild 1-3,fever,headache Albuterol/Ipratropium (Albuterol/Iprat 2.5/0.5mg 3 Ml Ampul.Neb) 3 ml INHALE RQ4H WHILE AWAKE [facility] Last Admin: 04/20/25 07:46 Dose: 3 ml Documented By: MADELIN Calcium Carbonate (Calcium Carbonate 750 Mg Tab.Chew) 750 mg PO Q4H PRN PRN Reason: Heartburn Enoxaparin Sodium (Enoxaparin Sodium 40 Mg/0.4 Ml Syringe) 40 mg SUBCUT Q24H [facility] Last Admin: 04/19/25 21:06 Dose: 40 mg Documented By: NGA Guaifenesin/Dextromethorphan (Guaifenesin Dm 100/10/5 Ml 5 Ml Syrup) 5 ml PO Q6H PRN PRN Reason: Cough Azithromycin 500 mg/ Sodium (Chloride) 250 mls @ 125 mls/hr IV Q24H [facility] Magnesium Hydroxide (Milk Of Magnesia 30 Ml Oral.Susp) 30 ml PO DAILY PRN PRN Reason: Constipation Melatonin (Melatonin 3 Mg Tablet) 6 mg PO BEDTIME PRN PRN Reason: Insomnia Ondansetron HCl (Ondansetron Hcl 4 Mg/2 Ml Vial) 4 mg IVPUSH Q8H PRN PRN Reason: Nausea and Vomiting Last Admin: 04/20/25 07:07 Dose: 4 mg Documented By: CATRACHO Oxycodone HCl (Oxycodone Hcl Immed Release 5 Mg Tablet) 5 mg PO Q6H PRN PRN Reason: Pain, Severe (Pain Scale 7-10) Prednisone (Prednisone 20 Mg Tablet) 60 mg PO DAILY [facility]; Taper Stop: 05/04/25 08:59 Last Admin: 04/20/25 08:29 Dose: 60 mg Documented By: CATRACHO Sodium Chloride (0.9 % Sodium Chloride Flush 3 Ml Syringe) 3 ml IVFLUSH [facility] Last Admin: 04/20/25 07:12 Dose: 3 ml Documented By: CATRACHO Tramadol HCl (Tramadol Hcl 50 Mg Tablet) 50 mg PO Q6H PRN PRN Reason: Pain, Moderate(Pain Scale 4-6) Labs 04/20/25 03:53 04/20/25 03:53 Labs: Laboratory Results - last 24 hr 04/19/25 04/19/25 04/19/25 14:45 14:46 20:45 MCV 85.5 MCH 27.5 MCHC 32.2 RDW 13.7 Plt Count 199 MPV 10.8 Immature Gran % (Auto) 0.2 Neut % (Auto) 56.9 Lymph % (Auto) 27.6 Allen % (Auto) 9.3 Eos % (Auto) 5.3 H Baso % (Auto) 0.7 Lymph # (Auto) 1.6 Allen # (Auto) 0.5 Eos # (Auto) 0.3 Baso # (Auto) 0.0 Abs Immat Gran (auto) 0.01 Absolute Neuts (auto) 3.3 Absolute Nucleated RBC 0.000 Nucleated RBC % (auto) 0.0 VBG pH VBG pCO2 VBG pO2 VBG HCO3 VBG O2 Saturation VBG Base Excess Anion Gap 11 L Estim Creat Clear Calc -20.3 Estimated GFR > 60 Random Glucose 101 Lactic Acid 3.5 H* Lactic Acid F/U @ 2Hr Lactic Acid F/U @ 4Hr Calcium 9.3 Magnesium 2.0 Total Bilirubin 0.2 AST 20 ALT 17 Alkaline Phosphatase 58 Total Protein 7.3 Albumin 4.1 Vitamin B12 Folate Influenza Type A (PCR) NEGATIVE Influenza Type B (PCR) NEGATIVE RSV RNA Qual (PCR) POSITIVE A SARS-CoV-2 RNA (RT-PCR) NEGATIVE 04/19/25 04/19/25 04/20/25 20:50 23:09 01:27 MCV MCH MCHC RDW Plt Count MPV Immature Gran % (Auto) Neut % (Auto) Lymph % (Auto) Allen % (Auto) Eos % (Auto) Baso % (Auto) Lymph # (Auto) Allen # (Auto) Eos # (Auto) Baso # (Auto) Abs Immat Gran (auto) Absolute Neuts (auto) Absolute Nucleated RBC Nucleated RBC % (auto) VBG pH 7.39 VBG pCO2 33 VBG pO2 58 VBG HCO3 20 L VBG O2 Saturation 86.0 VBG Base Excess -3.4 Anion Gap Estim Creat Clear Calc Estimated GFR Random Glucose Lactic Acid Lactic Acid F/U @ 2Hr 6.5 H* Lactic Acid F/U @ 4Hr 4.3 H* Calcium Magnesium Total Bilirubin AST ALT Alkaline Phosphatase Total Protein Albumin Vitamin B12 Folate Influenza Type A (PCR) Influenza Type B (PCR) RSV RNA Qual (PCR) SARS-CoV-2 RNA (RT-PCR) 04/20/25 03:53 MCV 85.7 MCH 27.1 MCHC 31.6 RDW 13.7 Plt Count 199 MPV 11.3 Immature Gran % (Auto) 0.2 Neut % (Auto) 74.1 H Lymph % (Auto) 23.7 Allen % (Auto) 2.0 Eos % (Auto) 0.0 Baso % (Auto) 0.0 Lymph # (Auto) 1.1 L [place] # (Auto) 0.1 Eos # (Auto) 0.0 Baso # (Auto) 0.0 Abs Immat Gran (auto) 0.01 Absolute Neuts (auto) 3.3 Absolute Nucleated RBC 0.000 Nucleated RBC % (auto) 0.0 VBG pH VBG pCO2 VBG pO2 VBG HCO3 VBG O2 Saturation VBG Base Excess Anion Gap 12 Estim Creat Clear Calc 89.7 Estimated GFR > 60 Random Glucose 143 H Lactic Acid Lactic Acid F/U @ 2Hr Lactic Acid F/U @ 4Hr Calcium 8.7 D Magnesium Total Bilirubin AST ALT Alkaline Phosphatase Total Protein Albumin Vitamin B12 626 Folate 8.6 Influenza Type A (PCR) Influenza Type B (PCR) RSV RNA Qual (PCR) SARS-CoV-2 RNA (RT-PCR) Assessment and Plan (1) Moderate persistent asthma: Status: Acute (2) Acute asthma exacerbation: Status: Acute (3) RSV (acute bronchiolitis due to respiratory syncytial virus): Status: Acute (4) Viral pneumonia: Status: Acute Plan Patient is a 44 old female with a history significant for moderate persistent asthma (only on albuterol) and history of ICU admission with intubation in 2009 for asthma exacerbation, who presented to the ED due to cough, shortness of breath, wheezing and chest discomfort for the past 5 days. +RSV Acute hypoxic respiratory failure with acute asthma exacerbation secondary to RSV with superimposed viral pneumonia CXR: Perihilar interstitial opacity consistent with atypical pulmonary infection such as virus or mycoplasma. Right middle lobe consolidation and thickening of the major fissure in th - hypoxic with ambulation, titrate O2 PRN - poorly controlled asthma at baseline - change Prednisone to IV solumedrol - change Duoneb to xopenex due to tachycaredia -Empiric Ceftriaxone and azithromycin for possible superimposed bacterial PNA -Pulmonology consult -supportive care for RSV, Robitussin, Tylenol Acute lactic acidosis and tachycardia secondary to albuterol use - trend lactic acid Anxiety, consider low dose benzo full code VTE prophy: lovenox Discussed with family Quality Stroke Does the patient have a stroke diagnosis?: No VTE Prior VTE?: No VTE Risk Level:: Medical - moderate - high VTE Device Contraindication: Treatment Not Indicated VTE Drug Contraindication: N/A - Med Ordered
--- NOTE | 2025-04-20 12:30 | PC.NURSE ---
pt medicated per provider order. family bedside for support. pending bed assignment. plan of care ongoing. call burton placed within reach.
--- NOTE | 2025-04-20 13:54 | PM.CNPUL ---
History of Present Illness History of Present Illness Consult date: 04/20/25 Chief complaint: Acute hypoxic respiratory failure, acute exacerbat Narrative: 44-year-old lady with childhood asthma that resolved later teens and recently came back normally treated with albuterol MDI admitted on 04/19/2025 with progressive dyspnea secondary to acute asthma exacerbation on the background of RSV bronchitis. Patient started on systemic glucocorticoids and nebulized bronchodilators with slow improvement. However, still with significant wheezing and very poor air movement. Review of Systems Constitutional: Constitutional: Denies daytime sleepiness, Denies excessive sweating, Denies fatigue, Denies fever(s), Denies lethargy, Denies malaise, Denies night sweats, Denies snoring and Denies weight loss Eyes: Eyes: Denies blurry vision and Denies itchy eyes ENT: Denies nasal congestion, Denies post nasal drip, Denies sinus pain, Denies sinus pressure and Denies other ( Thrush) Cardiovascular: Cardiovascular: Denies chest pain, Denies pedal edema, Denies dyspnea, Reports dyspnea on exertion, Denies orthopnea and Denies paroxysmal nocturnal dyspnea Respiratory: Respiratory: Denies cough, Denies hemoptysis, Denies excessive phlegm production, Denies dyspnea, Reports dyspnea on exertion, Denies snoring and Reports wheezing Gastrointestinal: Gastrointestinal: Denies abdominal pain and Denies heartburn Musculoskeletal: Musculoskeletal: Denies myalgias, Denies arthralgias and Denies joint swelling Integumentary/Breasts: Skin/Breast: Denies rash Neurologic: Denies memory loss and Denies seizure-like activity Psychiatric: Psychiatric: Denies abnormal sleep pattern, Denies anxiety and Denies memory loss Endocrine: Endocrine: Denies excessive sweating, Denies fatigue and Denies heat intolerance Hematologic/Lymphatic: Hematologic/Lymphatic: Denies easy bruising Allergic/Immunologic: Allergic/Immunologic: Denies itchy eyes, Denies seasonal rhinorrhea and Reports wheezing PMFSH Past Medical History Medical History (Updated 04/19/25 @ 22:20 by Mariel Obregon DO) Moderate persistent asthma Social History Social History Smoked in Last 30 Days: No Use of substances other than those prescribed or required for medical reasons: No Advance Directives: No Advance Directives Information Provided: No Do you have a plan to hurt others: No Plan Patient : No Meds Allergies Allergy/AdvReac Type Severity Reaction Status Date / Time No Known Allergies Allergy Verified 04/19/25 14:15 Active Medications: Current Medications Acetaminophen (Acetaminophen 325 Mg Tablet) 975 mg PO Q6H PRN PRN Reason: Pain, Mild 1-3,fever,headache Albuterol/Ipratropium (Albuterol/Iprat 2.5/0.5mg 3 Ml Ampul.Neb) 3 ml INHALE RQ4H WHILE AWAKE [facility] Last Admin: 04/20/25 11:08 Dose: 3 ml Calcium Carbonate (Calcium Carbonate 750 Mg Tab.Chew) 750 mg PO Q4H PRN PRN Reason: Heartburn Levalbuterol HCl 2.5 mg/ (Ipratropium [place] 0.5 mg) 0 mg INHALE RQ4H WHILE AWAKE [facility] Levalbuterol HCl 1.25 mg/ (Ipratropium [place] 0.5 mg) 0 mg INHALE Q2H PRN PRN Reason: Shortness of Breath/Wheezing Enoxaparin Sodium (Enoxaparin Sodium 40 Mg/0.4 Ml Syringe) 40 mg SUBCUT Q24H [facility] Last Admin: 04/19/25 21:06 Dose: 40 mg Guaifenesin/Dextromethorphan (Guaifenesin Dm 100/10/5 Ml 5 Ml Syrup) 5 ml PO Q6H PRN PRN Reason: Cough Azithromycin 500 mg/ Sodium (Chloride) 250 mls @ 125 mls/hr IV Q24H [facility] Ceftriaxone Sodium 1 gm/ (Sodium Chloride) 50 mls @ 100 mls/hr IV BEDTIME [facility] Magnesium Hydroxide (Milk Of Magnesia 30 Ml Oral.Susp) 30 ml PO DAILY PRN PRN Reason: Constipation Melatonin (Melatonin 3 Mg Tablet) 6 mg PO BEDTIME PRN PRN Reason: Insomnia Methylprednisolone Sodium Succinate (Methylprednisolone Sod Succ 40 Mg/Ml Vial) 40 mg IVPUSH Q8H [facility] Last Admin: 04/20/25 12:14 Dose: 40 mg Ondansetron HCl (Ondansetron Hcl 4 Mg/2 Ml Vial) 4 mg IVPUSH Q8H PRN PRN Reason: Nausea and Vomiting Last Admin: 04/20/25 07:07 Dose: 4 mg Oxycodone HCl (Oxycodone Hcl Immed Release 5 Mg Tablet) 5 mg PO Q6H PRN PRN Reason: Pain, Severe (Pain Scale 7-10) Sodium Chloride (0.9 % Sodium Chloride Flush 3 Ml Syringe) 3 ml IVFLUSH QSHIFT [facility] Last Admin: 04/20/25 07:12 Dose: 3 ml Tramadol HCl (Tramadol Hcl 50 Mg Tablet) 50 mg PO Q6H PRN PRN Reason: Pain, Moderate(Pain Scale 4-6) Home Medications ?Medication ?Instructions ?Recorded ?Confirmed ?Last Taken ?Type albuterol sulfate 90 mcg/actuation 2 puff inhalation Q4H PRN Wheezing 04/20/25 04/20/25 Unknown History aerosol inhaler budesonide 0.5 mg/2 mL suspension 0.5 mg inhalation BID 04/20/25 04/20/25 Unknown History for nebulization Physical Exam Vital Signs: Vital Signs: Last Vital Signs Temp 98.8 F 04/20/25 12:04 Pulse 136 H 04/20/25 12:04 Resp 34 H 04/20/25 12:04 BP 121/61 04/20/25 12:04 Pulse Ox 92 04/20/25 12:04 O2 Del Method Room Air 04/20/25 12:04 BMI result Body Mass Index 25.6 Const: General: no acute distress and alert Nutritional Appearance: not obese Orientation/consciousness: Other orientation findings ( oriented) HEENT: Head: Yes atraumatic Eyes: General: appearance normal, both eyes and all related structures Sclerae: sclerae normal EOM: EOMs intact bilaterally Neck: Neck: Yes supple Lymphatic: no lymphadenopathy noted Resp: Effort & Inspection: normal respiratory effort and no use of accessory muscles Auscultation: wheezes (Expiratory bilateral) and other (Poor bilateral air movement) Cardio: Rate: regular rate Rhythm: regular rhythm Heart sounds: no gallops, no murmurs and no rubs Skin: General skin exam: other ( warm) Extrem: General: No clubbing, No cyanosis and No edema Results Laboratory Findings 04/20/25 03:53 04/20/25 03:53 Abnormal lab findings: Abnormal Labs 04/19/25 04/19/25 04/19/25 14:45 14:46 20:45 WBC Hgb Neut % (Auto) Eos % (Auto) 5.3 H Lymph # (Auto) VBG HCO3 Chloride Anion Gap 11 L BUN Random Glucose Lactic Acid 3.5 H* Lactic Acid F/U @ 2Hr Lactic Acid F/U @ 4Hr RSV RNA Qual (PCR) POSITIVE A 04/19/25 04/19/25 04/20/25 20:50 23:09 01:27 WBC Hgb Neut % (Auto) Eos % (Auto) Lymph # (Auto) VBG HCO3 20 L Chloride Anion Gap BUN Random Glucose Lactic Acid Lactic Acid F/U @ 2Hr 6.5 H* Lactic Acid F/U @ 4Hr 4.3 H* RSV RNA Qual (PCR) 04/20/25 03:53 WBC 4.5 L Hgb 11.8 L Neut % (Auto) 74.1 H Eos % (Auto) Lymph # (Auto) 1.1 L VBG HCO3 Chloride 110 H Anion Gap BUN 8 L Random Glucose 143 H Lactic Acid Lactic Acid F/U @ 2Hr Lactic Acid F/U @ 4Hr RSV RNA Qual (PCR) Assessment and Plan (1) RSV (acute bronchiolitis due to respiratory syncytial virus): Status: Acute (2) Acute asthma exacerbation: Qualifiers: Asthma severity: moderate Asthma persistence: persistent Qualified Code(s): J45.41 - Moderate persistent asthma with (acute) exacerbation Status: Acute (3) Viral pneumonia: Status: Acute Plan Impression: 44-year-old lady admitted with dyspnea secondary to acute exacerbation of underlying asthma secondary to RSV bronchitis, now recovering slowly. Recommendations: Agree with current therapeutic regimen including systemic glucocorticoids taper and nebulized bronchodilators. Would benefit from inhaled corticosteroid upon discharge. Procedures Date of Service Date of Service: 04/20/25
[2025-04-20] MEDS: levalbuterol HCL 2.5 MG, Ipratropium Bromide 0.5 MG INHALE ×2 (15:42→20:56)
[2025-04-20] MEDS: guaiFENesin DM 100/10/5 ML 5 ML SYRUP PO (21:01)
[2025-04-20 22:35] LABS: Troponin-I High Sensitivity < 2.7 ng/L (<3.5-17.0)
[2025-04-21] VITALS (8 sets, daily range): BP systolic 102–116; BP diastolic 51–73; PULSE 62–90; RESP 16–20; TEMP 36.7–37.5; O2SAT 92–98
[2025-04-21 00:26] LABS: Troponin-I High Sensitivity < 2.7 ng/L (<3.5-17.0)
[2025-04-21] MEDS: Artificial Tears 15 ML DROPS 1 DROP EYE-BOTH ×3 (03:52→21:46)
[2025-04-21 07:15] LABS: MANUAL DIFF FLAG NO
[2025-04-21 07:27] LABS: Hematocrit 37.3 % (37.0-47.0); Hemoglobin 11.9 g/dl (12.0-16.0); Imm Gran Abs Auto 0.02 X10*3/uL (0.00-0.03); Imm Gran Pct Auto 0.3 % (0.0-0.4); Lymphocytes Absolute Auto 1.7 X10*3/uL (1.2-4.9); Mean Corpuscular HGB Conc 31.9 g/dl (31.0-35.0); Mean Corpuscular Hemoglobin 27.5 pg (27.0-33.0); Mean Corpuscular Volume 86.1 fL (80.0-98.0); NRBC Abs Auto 0.000 X10*3/uL (0.0-0.012); NRBC Pct Auto 0.0 /100WBC (0.0-0.2); Platelet Count 213 X10*3/uL (160-400); Red Blood Count 4.33 X10*6/uL (4.20-5.50); White Blood Count 7.7 X10*3/uL (4.8-10.8)
[2025-04-21 07:35] LABS: Anion Gap 10 (12-20); Blood Urea Nitrogen 10 mg/dL (9-16); Calcium 9.1 mg/dL (8.4-10.2); Carbon Dioxide 24 mmol/L (22-29); Chloride 109 mmol/L (96-108); Creatinine Clr Calc Pharmacy 91.0; Estimated Glomerular Filt Rate > 60; Potassium 4.3 mmol/L (3.3-5.1); Sodium 139 mmol/L (135-145)
[2025-04-21] MEDS: oxyCODONE HCl Immed Release 5 MG TABLET PO (07:45)
[2025-04-21] MEDS: guaiFENesin DM 100/10/5 ML 5 ML SYRUP PO ×2 (07:46→21:46)
[2025-04-21] MEDS: 0.9 % Sodium Chloride Flush 3 ML SYRINGE IVFLUSH ×3 (09:26→21:14)
[2025-04-21] MEDS: levalbuterol HCL 2.5 MG, Ipratropium Bromide 0.5 MG INHALE ×3 (11:16→19:34)
--- NOTE | 2025-04-21 11:43 | MHC.CM.PN ---
EMR REVIEWED, PT W/ASTHMA EXAC/PNA, CM ATTEMPTED TO MEET W/PT HOWEVER PT SOUNDLY SLEEPING, PT'S AT BEDSIDE AND ANSWERS MOST QUESTIONS. PT IS INDEP W/NEBULIZER FOR DME, NO HOME SERVICES, PT'S COUSIN ALSO AT BEDSIDE AND REPORTS PT HAS BEEN IN [place] FOR ALMOST 6MOS AND NEEDS MH, PT'S IN AGREEMENT AND REF PLACED. PT DOES HAVE [place] INSURANCE AND PCP. CM TO REVISIT W/PT ONCE AWAKE TO CONFIRM ABOVE INFO AND DETERMINE IF PT WOULD LIKE TO COMPLETE A HCP.
--- NOTE | 2025-04-21 17:37 | HO.PM.IMPN ---
Subjective Subjective Date of Service: 04/21/25 Interval History: Tired and sleepy today. Wheezing when auscultating lungs. Also endorsing inner ear pain and discomfort. Also endorsing abdominal pain and discomfort. Minimal appetite, with nausea postprandially. Also endorsing generalized malaise Review of Systems Review of Systems: Yes all other systems are reviewed and are negative Physical Exam Exam: Exam: General: A&O x3, oriented to time place person and situation. Fatigued, appears comfortable asleep Cardiac: S1, S2 auscultated with no S3/4, no MRG. Well perfused. Respiratory: Normal inspiratory and expiratory breath times bilaterally, with wheezing auscultated in the upper and mid zones bilaterally on inhalation and exhalation. Not dyspneic or tachypneic. Normal SpO2 GI/ : No abdominal pain on palpation, no masses or distentions. MSK: Normal ambulation without pain at bony prominences or musculature Neurological: Normal neurological examination on overview, without obvious CN II-XII abnormalities. Vital Signs: Vital Signs: Last Vital Signs Temp 98.4 F 04/21/25 15:08 Pulse 85 04/21/25 15:09 Resp 16 04/21/25 15:09 BP 116/73 04/21/25 15:08 Pulse Ox 98 04/21/25 15:08 O2 Del Method Room Air 04/21/25 15:08 BMI result Body Mass Index 25.6 Objective Data Active Medications Acetaminophen (Acetaminophen 325 Mg Tablet) 975 mg PO Q6H PRN PRN Reason: Pain, Mild 1-3,fever,headache Albuterol/Ipratropium (Albuterol/Iprat 2.5/0.5mg 3 Ml Ampul.Neb) 3 ml INHALE RQ4H WHILE AWAKE [facility] Last Admin: 04/21/25 15:10 Dose: Not Given Documented By: ZAC Non-Admin Reason: Duplicate Order Artificial Tears (Artificial Tears 15 Ml Drops) 1 drop EYE-BOTH Q4H PRN PRN Reason: Dry Eyes Last Admin: 04/21/25 14:49 Dose: 1 drop Documented By: FRANCISCO JAVIER Calcium Carbonate (Calcium Carbonate 750 Mg Tab.Chew) 750 mg PO Q4H PRN PRN Reason: Heartburn Levalbuterol HCl 2.5 mg/ (Ipratropium [place] 0.5 mg) 0 mg INHALE RQ4H WHILE AWAKE [facility] Last Admin: 04/21/25 15:07 Dose: 1 dose Documented By: ZAC Levalbuterol HCl 1.25 mg/ (Ipratropium [place] 0.5 mg) 0 mg INHALE Q2H PRN PRN Reason: Shortness of Breath/Wheezing Enoxaparin Sodium (Enoxaparin Sodium 40 Mg/0.4 Ml Syringe) 40 mg SUBCUT Q24H [facility] Last Admin: 04/20/25 21:01 Dose: 40 mg Documented By: A[place] Guaifenesin/Dextromethorphan (Guaifenesin Dm 100/10/5 Ml 5 Ml Syrup) 5 ml PO Q6H PRN PRN Reason: Cough Last Admin: 04/21/25 07:46 Dose: 5 ml Documented By: FRANCISCO JAVIER Azithromycin 500 mg/ Sodium (Chloride) 250 mls @ 125 mls/hr IV Q24H [facility] Last Infusion: 04/21/25 00:16 Dose: Infused Documented By: AUSTIN Ceftriaxone Sodium 1 gm/ (Sodium Chloride) 50 mls @ 100 mls/hr IV BEDTIME [facility] Last Infusion: 04/20/25 21:44 Dose: Infused Documented By: A[place] Magnesium Hydroxide (Milk Of Magnesia 30 Ml Oral.Susp) 30 ml PO DAILY PRN PRN Reason: Constipation Melatonin (Melatonin 3 Mg Tablet) 6 mg PO BEDTIME PRN PRN Reason: Insomnia Last Admin: 04/20/25 21:01 Dose: 6 mg Documented By: [place] Methylprednisolone Sodium Succinate (Methylprednisolone Sod Succ 40 Mg/Ml Vial) 40 mg IVPUSH Q8H [facility] Last Admin: 04/21/25 12:01 Dose: 40 mg Documented By: FRANCISCO JAVIER Ondansetron HCl (Ondansetron Hcl 4 Mg/2 Ml Vial) 4 mg IVPUSH Q8H PRN PRN Reason: Nausea and Vomiting Last Admin: 04/21/25 15:35 Dose: 4 mg Documented By: FRANCISCO JAVIER Oxycodone HCl (Oxycodone Hcl Immed Release 5 Mg Tablet) 5 mg PO Q6H PRN PRN Reason: Pain, Severe (Pain Scale 7-10) Last Admin: 04/21/25 07:45 Dose: 5 mg Documented By: FRANCISCO JAVIER Sodium Chloride (0.9 % Sodium Chloride Flush 3 Ml Syringe) 3 ml IVFLUSH QSHIFT [facility] Last Admin: 04/21/25 16:40 Dose: 3 ml Documented By: FRANCISCOJ AVIER Tramadol HCl (Tramadol Hcl 50 Mg Tablet) 50 mg PO Q6H PRN PRN Reason: Pain, Moderate(Pain Scale 4-6) Labs 04/21/25 06:37 04/21/25 06:37 Labs: Laboratory Results - last 24 hr 04/20/25 04/20/25 04/21/25 22:06 23:59 06:37 MCV 86.1 MCH 27.5 MCHC 31.9 RDW 13.8 Plt Count 213 MPV 11.0 Immature Gran % (Auto) 0.3 Neut % (Auto) 73.8 H Lymph % (Auto) 21.6 [place] % (Auto) 4.3 Eos % (Auto) 0.0 Baso % (Auto) 0.0 Lymph # (Auto) 1.7 [place] # (Auto) 0.3 Eos # (Auto) 0.0 Baso # (Auto) 0.0 Abs Immat Gran (auto) 0.02 Absolute Neuts (auto) 5.7 Absolute Nucleated RBC 0.000 Nucleated RBC % (auto) 0.0 Anion Gap 10 L Estim Creat Clear Calc 91.0 Estimated GFR > 60 Random Glucose 136 H Calcium 9.1 Troponin I High Sens < 2.7 < 2.7 Beta-Hydroxybutyrate 0.14 Microbiology Microbiology Results: Microbiology 04/19/25 21:02 Blood Culture - Preliminary Blood - Venous No growth after 24 hours. 04/19/25 20:46 Blood Culture - Preliminary Blood - Venous No growth after 24 hours. Assessment and Plan (1) Acute lactic acidosis: Status: Acute (2) Moderate persistent asthma: Status: Acute (3) Acute asthma exacerbation: Status: Acute (4) Acute respiratory failure with hypoxia: Status: Acute (5) RSV (acute bronchiolitis due to respiratory syncytial virus): Status: Acute (6) Viral pneumonia: Status: Acute Plan 44-year-old female, with a history of moderate persistent asthma only on albuterol, history of ICU admission with intubation 2009 for asthma exacerbation, presenting to emergency room 2/2 coughing, shortness of breath and wheezing, admitted with +ve RSV viral pneumonia with sepsis. Sepsis Viral pneumonia - RSV +ve Acute hypoxic respiratory failure Acute exacerbation of moderate persistent asthma History of intubation 2010 Right middle lobe consolidation identified on chest x-ray, thickening of major fissure Hypoxic with ambulation PLAN - Solu-Medrol b.i.d. IV 40 mg - currently on Xopenex - continue ambulatory SpO2 - continue ceftriaxone & azithromycin - pulmonology consulted - continue supportive care for RSV with Robitussin and Tylenol Generalized abdominal pain Possible GERD Patient endorsing generalized abdominal pain, with poor p.o. intake for the past 3 days. Beta hydroxybutyrate-ve. Patient did have elevated lactic acid. We will continue to monitor p.o. intake and encourage - if persistent abdominal pain, repeat lactic acid Empirically start omeprazole Lactic acidosis and tachycardia Likely 2/2 frequent albuterol use in the setting of patient's asthma exacerbation Trending lactic acid, and monitoring abdominal pain closely [employer] - VTE: Enoxaparin - CODE STATUS: Full code - DIET: Regular Total time managing care of this patient today: 35 minutes. Quality Stroke Does the patient have a stroke diagnosis?: No VTE Prior VTE?: No VTE Risk Level:: Medical - moderate - high VTE Device Contraindication: Treatment Not Indicated VTE Drug Contraindication: N/A - Med Ordered
[2025-04-22] VITALS (11 sets, daily range): BP systolic 106–131; BP diastolic 56–81; PULSE 60–95; RESP 16–20; TEMP 36.6–37.2; O2SAT 91–100
[2025-04-22 06:48] LABS: MANUAL DIFF FLAG NO
[2025-04-22 07:17] LABS: Anion Gap 10 (12-20); Blood Urea Nitrogen 14 mg/dL (9-16); Calcium 9.1 mg/dL (8.4-10.2); Carbon Dioxide 27 mmol/L (22-29); Chloride 105 mmol/L (96-108); Creatinine Clr Calc Pharmacy 79.2; Estimated Glomerular Filt Rate > 60; Potassium 4.1 mmol/L (3.3-5.1); Sodium 138 mmol/L (135-145)
[2025-04-22 07:34] LABS: Hematocrit 39.6 % (37.0-47.0); Hemoglobin 12.6 g/dl (12.0-16.0); Imm Gran Abs Auto 0.04 X10*3/uL (0.00-0.03); Imm Gran Pct Auto 0.4 % (0.0-0.4); Lymphocytes Absolute Auto 1.9 X10*3/uL (1.2-4.9); Mean Corpuscular HGB Conc 31.8 g/dl (31.0-35.0); Mean Corpuscular Hemoglobin 27.2 pg (27.0-33.0); Mean Corpuscular Volume 85.5 fL (80.0-98.0); NRBC Abs Auto 0.000 X10*3/uL (0.0-0.012); NRBC Pct Auto 0.0 /100WBC (0.0-0.2); Platelet Count 250 X10*3/uL (160-400); Red Blood Count 4.63 X10*6/uL (4.20-5.50); White Blood Count 9.0 X10*3/uL (4.8-10.8)
[2025-04-22] MEDS: levalbuterol HCL 2.5 MG, Ipratropium Bromide 0.5 MG INHALE ×4 (08:06→19:27)
[2025-04-22] MEDS: 0.9 % Sodium Chloride Flush 3 ML SYRINGE IVFLUSH ×3 (09:13→21:27)
--- NOTE | 2025-04-22 17:14 | P.PNIM_ITS ---
Subjective Subjective Date of Service: 04/22/25 Interval History: Patient will stay asleep during evaluation today. Reports that the patient was up mobilizing earlier this morning. Patient reports feeling very short of breath and wheezy overall. Review of Systems Review of Systems: Yes all other systems are reviewed and are negative Physical Exam 2 Exam: Exam: General: A&O x3, oriented to time place person and situation. Fatigued, appears comfortable asleep Cardiac: S1, S2 auscultated with no S3/4, no MRG. Well perfused. Respiratory: Normal inspiratory and expiratory breath times bilaterally, with wheezing auscultated in the upper and mid zones bilaterally on inhalation and exhalation. Not dyspneic or tachypneic. Normal SpO2 GI/ : No abdominal pain on palpation, no masses or distentions. MSK: Normal ambulation without pain at bony prominences or musculature Neurological: Normal neurological examination on overview, without obvious CN II-XII abnormalities. Vital Signs: Vital Signs: Last Vital Signs Temp 98.6 F 04/22/25 15:45 Pulse 95 04/22/25 15:45 Resp 20 04/22/25 15:45 BP 131/81 04/22/25 15:45 Pulse Ox 93 04/22/25 15:45 O2 Del Method Room Air 04/22/25 15:45 BMI result Body Mass Index 25.6 Objective Data Active Medications Acetaminophen (Acetaminophen 325 Mg Tablet) 975 mg PO Q6H PRN PRN Reason: Pain, Mild 1-3,fever,headache Artificial Tears (Artificial Tears 15 Ml Drops) 1 drop EYE-BOTH Q4H PRN PRN Reason: Dry Eyes Last Admin: 04/21/25 21:46 Dose: 1 drop Documented By: AUSTIN Calcium Carbonate (Calcium Carbonate 750 Mg Tab.Chew) 750 mg PO Q4H PRN PRN Reason: Heartburn Levalbuterol HCl 2.5 mg/ (Ipratropium [place] 0.5 mg) 0 mg INHALE RQ4H WHILE AWAKE [facility] Last Admin: 04/22/25 15:13 Dose: 1 dose Documented By: KAIDEN Levalbuterol HCl 1.25 mg/ (Ipratropium [place] 0.5 mg) 0 mg INHALE Q2H PRN PRN Reason: Shortness of Breath/Wheezing Enoxaparin Sodium (Enoxaparin Sodium 40 Mg/0.4 Ml Syringe) 40 mg SUBCUT Q24H [facility] Last Admin: 04/21/25 21:52 Dose: Not Given Documented By: AUSTIN Non-Admin Reason: Physician Held Med Guaifenesin/Dextromethorphan (Guaifenesin Dm 100/10/5 Ml 5 Ml Syrup) 5 ml PO Q6H PRN PRN Reason: Cough Last Admin: 04/21/25 21:46 Dose: 5 ml Documented By: AUSTIN Azithromycin 500 mg/ Sodium (Chloride) 250 mls @ 125 mls/hr IV Q24H [facility] Last Infusion: 04/22/25 00:02 Dose: Infused Documented By: AUSTIN Ceftriaxone Sodium 1 gm/ (Sodium Chloride) 50 mls @ 100 mls/hr IV BEDTIME [facility] Last Infusion: 04/21/25 21:58 Dose: Infused Documented By: AUSTIN Magnesium Hydroxide (Milk Of Magnesia 30 Ml Oral.Susp) 30 ml PO DAILY PRN PRN Reason: Constipation Melatonin (Melatonin 3 Mg Tablet) 6 mg PO BEDTIME PRN PRN Reason: Insomnia Last Admin: 04/20/25 21:01 Dose: 6 mg Documented By: AUSTIN Methylprednisolone Sodium Succinate (Methylprednisolone Sod Succ 125 Mg/2 Ml Vial) 60 mg IVPUSH Q8H [facility] Omeprazole (Omeprazole 40 Mg Capsule.Dr) 40 mg PO DAILY@0630 [facility] Ondansetron HCl (Ondansetron Hcl 4 Mg/2 Ml Vial) 4 mg IVPUSH Q8H PRN PRN Reason: Nausea and Vomiting Last Admin: 04/21/25 15:35 Dose: 4 mg Documented By: FRANCISCO JAVIER Oxycodone HCl (Oxycodone Hcl Immed Release 5 Mg Tablet) 5 mg PO Q6H PRN PRN Reason: Pain, Severe (Pain Scale 7-10) Last Admin: 04/21/25 07:45 Dose: 5 mg Documented By: FRANCISCO JAVIER Sodium Chloride (0.9 % Sodium Chloride Flush 3 Ml Syringe) 3 ml IVFLUSH QSHIFT [facility] Last Admin: 04/22/25 16:15 Dose: 3 ml Documented By: LEMUEL Tramadol HCl (Tramadol Hcl 50 Mg Tablet) 50 mg PO Q6H PRN PRN Reason: Pain, Moderate(Pain Scale 4-6) Last Admin: 04/22/25 09:39 Dose: 50 mg Documented By: LEMUEL Labs 04/22/25 06:39 04/22/25 06:39 Labs: Laboratory Results - last 24 hr 04/22/25 06:39 MCV 85.5 MCH 27.2 MCHC 31.8 RDW 13.8 Plt Count 250 MPV 11.2 Immature Gran % (Auto) 0.4 Neut % (Auto) 75.0 H Lymph % (Auto) 20.8 [place] % (Auto) 3.7 Eos % (Auto) 0.0 Baso % (Auto) 0.1 Lymph # (Auto) 1.9 [place] # (Auto) 0.3 Eos # (Auto) 0.0 Baso # (Auto) 0.0 Abs Immat Gran (auto) 0.04 H Absolute Neuts (auto) 6.8 Absolute Nucleated RBC 0.000 Nucleated RBC % (auto) 0.0 Anion Gap 10 L Estim Creat Clear Calc 79.2 Estimated GFR > 60 Random Glucose 136 H Calcium 9.1 Microbiology Microbiology Results: Microbiology 04/19/25 21:02 Blood Culture - Preliminary Blood - Venous No growth after 48 hours. 04/19/25 20:46 Blood Culture - Preliminary Blood - Venous No growth after 48 hours. Assessment and Plan (1) Acute lactic acidosis: Status: Acute (2) Moderate persistent asthma: Status: Acute (3) Acute asthma exacerbation: Status: Acute (4) Acute respiratory failure with hypoxia: Status: Acute (5) RSV (acute bronchiolitis due to respiratory syncytial virus): Status: Acute Plan 44-year-old female, with a history of moderate persistent asthma only on albuterol, history of ICU admission with intubation 2009 for asthma exacerbation, presenting to emergency room 2/2 coughing, shortness of breath and wheezing, admitted with +ve RSV viral pneumonia with sepsis. Sepsis Viral pneumonia - RSV +ve Acute hypoxic respiratory failure Acute exacerbation of moderate persistent asthma History of intubation 2009 Right middle lobe consolidation identified on chest x-ray, thickening of major fissure Hypoxic with ambulation PLAN - increase Solu-Medrol b.i.d. IV 60 mg - currently on Xopenex - continue ambulatory SpO2 - continue ceftriaxone & azithromycin - pulmonology consulted - continue supportive care for RSV with Robitussin and Tylenol Generalized abdominal pain Possible GERD Patient endorsing generalized abdominal pain, with poor p.o. intake for the past 3 days. Beta hydroxybutyrate-ve. Patient did have elevated lactic acid. We will continue to monitor p.o. intake and encourage - if persistent abdominal pain, repeat lactic acid Empirically start omeprazole Lactic acidosis and tachycardia Likely 2/2 frequent albuterol use in the setting of patient's asthma exacerbation Trending lactic acid, and monitoring abdominal pain closely QUALITY METRICS - VTE: Enoxaparin - CODE STATUS: Full code - DIET: Regular Total time managing care of this patient today: 35 minutes. Quality Stroke Does the patient have a stroke diagnosis?: No VTE Prior VTE?: No VTE Risk Level:: Medical - moderate - high VTE Device Contraindication: Treatment Not Indicated VTE Drug Contraindication: N/A - Med Ordered
[2025-04-22] MEDS: Artificial Tears 15 ML DROPS 1 DROP EYE-BOTH ×2 (18:09→22:18)
[2025-04-22] MEDS: guaiFENesin DM 100/10/5 ML 5 ML SYRUP PO (23:29)
[2025-04-23] VITALS (10 sets, daily range): BP systolic 102–132; BP diastolic 59–81; PULSE 58–97; RESP 16–20; TEMP 36.1–37; O2SAT 91–100
[2025-04-23] MEDS: levalbuterol HCL 2.5 MG, Ipratropium Bromide 0.5 MG INHALE ×3 (08:16→19:35)
[2025-04-23 08:24] LABS: Lipase 18 U/L (8-78)
[2025-04-23] MEDS: 0.9 % Sodium Chloride Flush 3 ML SYRINGE IVFLUSH ×3 (08:26→20:20)
[2025-04-23] MEDS: guaiFEN/Codeine SF 200/20/10ML 10 ML LIQUID PO ×3 (08:27→20:19)
[2025-04-23] MEDS: Artificial Tears 15 ML DROPS 1 DROP EYE-BOTH ×2 (08:45→16:37)
--- NOTE | 2025-04-23 08:58 | MHC.CM.PN ---
LATE ENTRY FOR 04/22/2025, CM MET W/PT AT BEDSIDE ONCE FAMILY LEFT, PT HAD REPORTED ON INTAKE SHE MOVED HERE W/HER APPROX 6 MOS AGO FROM [place] AND THEY LIVE W/HER COUSIN. PT REPORTS TO CM SHE FEELS SAFE IN NEW HOME ENVIRONMENT, PT REPORTS SHE FEELS COMFORTABLE LIVING W/HER COUSIN AND W/HER . PT REPORTS HER HAS CA AND IS IN AND OUT OF THE HOSPITAL ALL THE TIME. PT REPORTS SHE AND HER HAVE 2 CHILDREN WHO ARE BOTH IN COLLEGE IN [place], ONE LIVES W/PT'S [facility] AND THE OTHER LIVES ON CAMPUS. PT EDUCATED ON AND COMPLETED A HCP NAMING HER COUSIN CONSTANZA DOBSON [phone] HER [facility] AND DTR IVAN PINZON [phone], PT PROVIDED W/EDUCATIONAL HANDOUT, ORIGINAL AND COPY. COPY UPLOADED TO [facility] AND PLACED IN CHART.
--- NOTE | 2025-04-23 11:53 | P.PNIM_ITS ---
Subjective Subjective Date of Service: 04/23/25 Interval History: Patient reports poor appetite today-encouraged to eat. Breathing has improved compared to yesterday overall, with significantly less wheezing Pleuritic chest pain left lateral chest, reproducible to touch and coughing Review of Systems Review of Systems: Yes all other systems are reviewed and are negative Physical Exam 2 Exam: Exam: General: A&O x3, oriented to time place person and situation. Fatigued, appears comfortable Cardiac: S1, S2 auscultated with no S3/4, no MRG. Well perfused. Respiratory: Normal inspiratory and expiratory breath times bilaterally, with wheezing auscultated in the upper and mid zones bilaterally on inhalation and exhalation. Not dyspneic or tachypneic. GI/ : No abdominal pain on palpation, no masses or distentions. MSK: Normal ambulation. Tenderness to palpation of the distal aspect of the left lateral chest wall, reproducible with breathing and direct touch,. Neurological: Normal neurological examination on overview, without obvious CN II-XII abnormalities. Vital Signs: Vital Signs: Last Vital Signs Temp 98.6 F 04/23/25 11:11 Pulse 82 04/23/25 11:11 Resp 18 04/23/25 11:11 BP 103/74 04/23/25 11:11 Pulse Ox 93 04/23/25 11:11 O2 Del Method Room Air 04/23/25 11:11 BMI result Body Mass Index 25.6 Objective Data Active Medications Acetaminophen (Acetaminophen 325 Mg Tablet) 975 mg PO Q6H PRN PRN Reason: Pain, Mild 1-3,fever,headache Artificial Tears (Artificial Tears 15 Ml Drops) 1 drop EYE-BOTH Q4H PRN PRN Reason: Dry Eyes Last Admin: 04/23/25 08:45 Dose: 1 drop Documented By: CELE Calcium Carbonate (Calcium Carbonate 750 Mg Tab.Chew) 750 mg PO Q4H PRN PRN Reason: Heartburn Levalbuterol HCl 2.5 mg/ (Ipratropium [place] 0.5 mg) 0 mg INHALE RQ4H WHILE AWAKE [facility] Last Admin: 04/23/25 11:48 Dose: Not Given Documented By: BERNARDO Non-Admin Reason: Administered by Alternate Route Levalbuterol HCl 1.25 mg/ (Ipratropium [place] 0.5 mg) 0 mg INHALE Q2H PRN PRN Reason: Shortness of Breath/Wheezing Enoxaparin Sodium (Enoxaparin Sodium 40 Mg/0.4 Ml Syringe) 40 mg SUBCUT Q24H [facility] Last Admin: 04/22/25 23:29 Dose: 40 mg Documented By: HERO Guaifenesin/Codeine Phosphate (Guaifen/Codeine Sf 200/20/10ml 10 Ml Liquid) 10 ml PO Q4H PRN PRN Reason: Cough Last Admin: 04/23/25 08:27 Dose: 10 ml Documented By: CELE Azithromycin 500 mg/ Sodium (Chloride) 250 mls @ 125 mls/hr IV Q24H [facility] Last Infusion: 04/23/25 01:40 Dose: Infused Documented By: HERO Ceftriaxone Sodium 1 gm/ (Sodium Chloride) 50 mls @ 100 mls/hr IV BEDTIME [facility] Last Infusion: 04/22/25 23:44 Dose: Infused Documented By: HERO Magnesium Hydroxide (Milk Of Magnesia 30 Ml Oral.Susp) 30 ml PO DAILY PRN PRN Reason: Constipation Melatonin (Melatonin 3 Mg Tablet) 6 mg PO BEDTIME PRN PRN Reason: Insomnia Last Admin: 04/20/25 21:01 Dose: 6 mg Documented By: AUSTIN Methylprednisolone Sodium Succinate (Methylprednisolone Sod Succ 125 Mg/2 Ml Vial) 40 mg IVPUSH Q8H [facility] Last Admin: 04/23/25 08:26 Dose: 40 mg Documented By: CELE Omeprazole (Omeprazole 40 Mg Capsule.Dr) 40 mg PO DAILY@0630 [facility] Last Admin: 04/23/25 06:22 Dose: 40 mg Documented By: HERO Ondansetron HCl (Ondansetron Hcl 4 Mg/2 Ml Vial) 4 mg IVPUSH Q8H PRN PRN Reason: Nausea and Vomiting Last Admin: 04/21/25 15:35 Dose: 4 mg Documented By: FRANCISCO JAVIER Oxycodone HCl (Oxycodone Hcl Immed Release 5 Mg Tablet) 5 mg PO Q6H PRN PRN Reason: Pain, Severe (Pain Scale 7-10) Last Admin: 04/21/25 07:45 Dose: 5 mg Documented By: FRANCISCO JAVIER Sodium Chloride (0.9 % Sodium Chloride Flush 3 Ml Syringe) 3 ml IVFLUSH QSHIFT [facility] Last Admin: 04/23/25 08:26 Dose: 3 ml Documented By: CELE Tramadol HCl (Tramadol Hcl 50 Mg Tablet) 50 mg PO Q6H PRN PRN Reason: Pain, Moderate(Pain Scale 4-6) Last Admin: 04/23/25 08:45 Dose: 50 mg Documented By: CELE Labs 04/22/25 06:39 04/22/25 06:39 Labs: Laboratory Results - last 24 hr 04/22/25 06:39 Lipase 18 Assessment and Plan (1) Acute lactic acidosis: Status: Acute (2) Moderate persistent asthma: Status: Acute (3) Acute asthma exacerbation: Status: Acute (4) Acute respiratory failure with hypoxia: Status: Acute (5) RSV (acute bronchiolitis due to respiratory syncytial virus): Status: Acute (6) Viral pneumonia: Status: Acute Plan 44-year-old female, with a history of moderate persistent asthma only on albuterol, history of ICU admission with intubation 2009 for asthma exacerbation, presenting to emergency room 2/2 coughing, shortness of breath and wheezing, admitted with +ve RSV viral pneumonia with sepsis. Sepsis Viral pneumonia - RSV +ve Acute hypoxic respiratory failure Acute exacerbation of moderate persistent asthma History of intubation 2009 Right middle lobe consolidation identified on chest x-ray, thickening of major fissure Hypoxic with ambulation PLAN - Continue Solu-Medrol b.i.d. IV 40 mg - currently on Xopenex - continue ambulatory SpO2 - continue ceftriaxone & azithromycin - pulmonology consulted - continue supportive care for RSV with Robitussin and Tylenol Generalized abdominal pain Possible GERD Patient endorsing generalized abdominal pain, with poor p.o. intake for the past 3 days. Beta hydroxybutyrate-ve. Lipase normal Patient did have elevated lactic acid; however attributed to frequent albuterol use on admission. Empirically start omeprazole Left lateral chest pain Costocondritis Pain on the left lateral aspect of the chest, reproducible to palpation of the chest, coughing and with deep inspiration. Coughing frequently. Conservative management with guaifenesin/codeine, lidocaine patch, Tylenol and heat pack Lactic acidosis and tachycardia Likely 2/2 frequent albuterol use in the setting of patient's asthma exacerbation Trending lactic acid, and monitoring abdominal pain closely QUALITY METRICS - VTE: Enoxaparin - CODE STATUS: Full code - DIET: Regular Total time managing care of this patient today: 45 minutes. Quality Stroke Does the patient have a stroke diagnosis?: No VTE Prior VTE?: No VTE Risk Level:: Medical - moderate - high VTE Device Contraindication: Treatment Not Indicated VTE Drug Contraindication: N/A - Med Ordered
[2025-04-24] VITALS (7 sets, daily range): BP systolic 115–128; BP diastolic 67–83; PULSE 59–95; RESP 16–20; TEMP 36.3–36.4; O2SAT 92–95
--- NOTE | 2025-04-24 06:10 | PC.NURSE ---
c/o sharp superficial pain to US IV site on LUE. no redness or swelling, positive blood return. pain initially with flush then resolved. this nurse stated to patient that IV line can be removed and new one placed. pt declined stating she wants the line to stay in. requested med for pain. call burton in reach. states needs are met
[2025-04-24] MEDS: levalbuterol HCL 2.5 MG, Ipratropium Bromide 0.5 MG INHALE ×3 (07:39→15:42)
[2025-04-24] MEDS: Artificial Tears 15 ML DROPS 1 DROP EYE-BOTH ×2 (08:05→15:41)
[2025-04-24] MEDS: guaiFEN/Codeine SF 200/20/10ML 10 ML LIQUID PO ×2 (08:05→15:40)
[2025-04-24] MEDS: 0.9 % Sodium Chloride Flush 3 ML SYRINGE IVFLUSH ×2 (08:06→15:46)
[2025-04-24] MEDS: Lidocaine 4 % Patch ADH..PATCH 1 PATCH TRANSDERMA (10:57)
--- NOTE | 2025-04-24 17:53 | PM.DS ---
DS: Providers Provider Date of Service: 04/24/25 Date of admission: 04/19/25 20:32 Date of discharge: 04/24/25 Primary care physician: Safia Martinez MD Consults: 04/20/25 11:23 Consult to Pulmonology Routine Consulting Provider: [facility] Pulmonology Services Reason for consultation: acute respiratory distress, asthma exacerbation Has provider been notified: No DS: Diagnosis Discharge Diagnosis (1) Acute lactic acidosis: Status: Acute (2) Moderate persistent asthma: Status: Acute (3) Acute asthma exacerbation: Status: Acute (4) Acute respiratory failure with hypoxia: Status: Acute (5) RSV (acute bronchiolitis due to respiratory syncytial virus): Status: Acute (6) Viral pneumonia: Status: Acute DS: Summary Hospital Course Hospital Course: Admission HPI Chief Complaint: SOB, wheeze Patient is a 44 old female with a history significant for moderate persistent asthma (only on albuterol) and history of ICU admission with intubation in 2009 for asthma exacerbation, who presented to the ED due to cough, shortness of breath, wheezing and chest discomfort for the past 5 days. The patient reports that she saw her primary care and was started on a nebulizer without any improvement. She reports that at baseline she uses albuterol 2 to 3 times a day but has been using it up to 5 times a day due to her illness. She also has a mild headache and states that she has not been able to eat much for the past 3 days due to her cough and concern for post tussive emesis. No abdominal pain or urinary symptoms. Hospital course 44-year-old female, with a history of moderate persistent asthma only on albuterol, history of ICU admission with intubation 2009 for asthma exacerbation, presenting to emergency room 2/2 coughing, shortness of breath and wheezing, admitted with +ve RSV viral pneumonia with sepsis. Sepsis Viral pneumonia - RSV +ve Acute hypoxic respiratory failure Acute exacerbation of moderate persistent asthma History of intubation 2009 Right middle lobe consolidation identified on chest x-ray, thickening of major fissure Hypoxic with ambulation Improved gradually during hospitalization. CT thorax ordered for further evaluation revealing collapse of collapse of right lobe Evidence of bronchitis on CT. Transitioned from Solu-Medrol to prednisone Placed on ceftriaxone and azithromycin-tolerated well, change to p.o. on discharge continue supportive care for RSV with Robitussin and Tylenol Generalized abdominal pain Possible GERD Patient endorsing generalized abdominal pain, with poor p.o. intake for the past 3 days. Beta hydroxybutyrate-ve. Lipase normal Patient did have elevated lactic acid; however attributed to frequent albuterol use on admission. Empirically started omeprazole Left lateral chest pain Costocondritis Pain on the left lateral aspect of the chest, reproducible to palpation of the chest, coughing and with deep inspiration. Coughing frequently. Conservative management with guaifenesin/codeine, lidocaine patch, Tylenol and heat pack - tolerating well Lactic acidosis and tachycardia Likely 2/2 frequent albuterol use in the setting of patient's asthma exacerbation Trending lactic acid, and monitoring abdominal pain closely Incidental hepatic cysts Identified as multiple hepatic lesions on CT thorax that was incompletely characterized. Given that this was an unknown finding, evaluation with ultrasound right upper quadrant was performed This revealed multiple hepatic cysts Recommend follow up with outpatient Gastroenterology Status at Discharge Functional status at discharge: independent ambulation Overall status at discharge: patient is back to baseline Time Attestation Total time managing care of this patient today: 45 mintues. Discharge Coordination Time (in mins): 35 Quality: Safe Use of Opioids Does Pt have an Active Cancer Diagnosis on the Problem List?: No Quality: Stroke Does the patient have a stroke diagnosis?: No Physical Exam Exam: Exam: General: A&O x3, oriented to time place person and situation, comfortable, no pain Cardiac: S1, S2 auscultated with no S3/4, no MRG. Well perfused. Respiratory: Normal breath sounds auscultated throughout all lung zones, without wheezing, rales. Normal rate. GI/ : No abdominal pain on palpation, no masses or distentions. MSK: Normal ambulation without pain at bony prominences or musculature Neurological: Normal neurological examination on overview, without obvious CN II-XII abnormalities. Vital Signs: Vital Signs: Last Vital Signs Temp 97.6 F 04/24/25 15:42 Pulse 87 04/24/25 15:42 Resp 20 04/24/25 15:42 BP 115/80 04/24/25 15:42 Pulse Ox 93 04/24/25 15:42 O2 Del Method Room Air 04/24/25 15:42 BMI result Body Mass Index 25.6 DS: Data Data Completed and Pending Labs on day of discharge: Preliminary micro results at discharge 04/19/25 21:02 Blood Culture - Preliminary Blood - Venous No growth after 48 hours. 04/19/25 20:46 Blood Culture - Preliminary Blood - Venous No growth after 48 hours. Discharge Plan Discharge Anticipated Discharge Date/Time: 04/24/25 17:56 Patient Disposition: Home, Self-Care Discharge Diagnosis: Acute respriatory failure due RSV causing asthma exacerbation Referrals: Juan Baig [Other] - 1 Week Discharge Medications: New codeine-guaifenesin 10-100 mg/5 mL Liquid 10 ml PO Q4H PRN (Reason: Cough) 10 Days Qty: 120 0RF omeprazole 40 mg Capsule,Delayed Release(Dr/Ec) 40 mg PO DAILY@0630 14 Days Qty: 14 0RF prednisone 20 mg Tablet 60 mg PO DAILY 7 Days Qty: 21 1RF cephalexin 750 mg capsule 750 mg PO BID Qty: 14 1RF lidocaine [Lidocaine Pain Relief] 4 % Adhesive Patch,Medicated 1 patch transdermal DAILY 10 Days Qty: 10 0RF Protocol: Apply to: Apply to: left chest benzonatate 100 mg capsule 100 mg PO BID 7 Days Qty: 14 0RF doxycycline monohydrate 100 mg tablet 100 mg PO BID Qty: 14 1RF Continued budesonide 0.5 mg/2 mL Suspension For Nebulization 0.5 mg INHALATION BID albuterol sulfate [ProAir HFA] 90 mcg/actuation Hfa Aerosol Inhaler 2 puff INHALATION Q4H PRN (Reason: Wheezing) Discharge Orders: Discharge Order (Routine); Ordered 04/24/25 Ordered By: Marian Velásquez Diet: Advance to usual diet Activity on Discharge: As tolerated Stand Alone Forms: Patient Portal Discharge page Print Language: Georgian Care Plan Goals: recovery from acute respiratory failure due to RSV causing asthma exacerbation Health Concerns: acute respiratory failure due to RSV causing asthma exacerbation Plan of Treatment: Take prednisone as directed, Use inhalers as directed follow up with your Doctor in a week, call for appointmen Assessment: see above
== END 2025-04-24 19:24 | disposition home or self-care (01) | DRG 720 ==
LOC: HO.ED 16:13 → HO.EDOVER 20:38 → HO.IMC 04-20 14:35
PROVIDERS: Hospitalist; Physician Assistant; Physician Assistant Medical; Admitting Provider Internal Medicine; Emergency Provider Student in an Organized Health Care Education/Training Program; PCP Internal Medicine; Visit Provider Hospitalist
DX: A41.9 Sepsis, unspecified organism (principal); J96.01 Acute respiratory failure with hypoxia; E87.21 Acute metabolic acidosis; J12.9 Viral pneumonia, unspecified; B97.4 Respiratory syncytial virus as the cause of diseases classified elsewhere; J45.41 Moderate persistent asthma with (acute) exacerbation; F41.9 Anxiety disorder, unspecified; K21.9 Gastro-esophageal reflux disease without esophagitis; M94.0 Chondrocostal junction syndrome [Tietze]; Z20.822 Contact with and (suspected) exposure to COVID-19; Z79.899 Other long term (current) drug therapy
CPT/HCPCS: 36415; 71046; 71250; 76705; 80048; 80053; 82010; 82607; 82746; 82803; 83605; 83690; 83735; 84484; 85025; 87040; 87637; 93005; 94002; 94640; 94799; 99285; J0456; J0696; J1650; J1885; J2405; J2470; J2919; J3475; J7120

== ENCOUNTER → 2025-04-19 14:13 | Outpatient (BNV) | payer MEDICAID, SELFPAY | PROVIDERS: Visit Provider Radiology Diagnostic Radiology | DX: R91.8 Other nonspecific abnormal finding of lung field (principal); J98.11 Atelectasis | CPT/HCPCS: 71046 ==

== ENCOUNTER 2025-04-19 20:32 | Outpatient (BNV) | payer MEDICAID, SELFPAY | END 2025-04-19 21:32 | PROVIDERS: Admitting Provider Internal Medicine; Emergency Provider Student in an Organized Health Care Education/Training Program; Visit Provider Internal Medicine | DX: R00.0 Tachycardia, unspecified (principal) | CPT/HCPCS: 93010 ==

== ENCOUNTER 2025-04-19 20:32 | Outpatient (BNV) | payer MEDICAID, SELFPAY | END 2025-04-22 14:33 | PROVIDERS: Admitting Provider Internal Medicine; Emergency Provider Student in an Organized Health Care Education/Training Program; PCP Internal Medicine; Visit Provider Radiology Body Imaging | DX: K76.89 Other specified diseases of liver (principal) | CPT/HCPCS: 71250; 76705 ==

== ENCOUNTER 2025-04-19 20:32 | Outpatient (BNV) | payer MEDICAID, SELFPAY | END 2025-04-20 22:17 | PROVIDERS: Admitting Provider Internal Medicine; Emergency Provider Student in an Organized Health Care Education/Training Program; PCP Internal Medicine; Visit Provider Internal Medicine | DX: R00.0 Tachycardia, unspecified (principal) | CPT/HCPCS: 93010 ==

== ENCOUNTER → 2025-04-19 20:32 | Outpatient (BNV) | payer MEDICAID, SELFPAY | PROVIDERS: Admitting Provider Internal Medicine; Emergency Provider Student in an Organized Health Care Education/Training Program; Visit Provider Physician Assistant | DX: E87.21 Acute metabolic acidosis (principal); J45.40 Moderate persistent asthma, uncomplicated; J45.41 Moderate persistent asthma with (acute) exacerbation; J96.01 Acute respiratory failure with hypoxia; J21.0 Acute bronchiolitis due to respiratory syncytial virus | CPT/HCPCS: 99222; 99232; 99499 ==

== ENCOUNTER → 2025-04-19 20:32 | Outpatient (BNV) | payer MEDICAID, SELFPAY | PROVIDERS: Admitting Provider Internal Medicine; Emergency Provider Student in an Organized Health Care Education/Training Program; Visit Provider Internal Medicine Pulmonary Disease | DX: J21.0 Acute bronchiolitis due to respiratory syncytial virus (principal); J45.41 Moderate persistent asthma with (acute) exacerbation; J12.9 Viral pneumonia, unspecified | CPT/HCPCS: 99222 ==